=== PATIENT | female | born 1955 | race Caucasian/White ===

== ENCOUNTER 2017-01-28 05:07 | Emergency (ER) | payer BC ==
[~2017-01-28] VITALS: Ht 170.2 cm; Wt 68.0 kg
[~2017-01-28 05:07] MED LIST: ACHD5005 PO; CPR500T PO; CRAN200C PO; ESOM20CA32 PO; HYOS0.1283 SL; LACT1CAP8 PO; LEVO50TA6 PO; METR500T PO; MULT1TAB59 PO; NITR-65 PO; NYST1000 PO; ONDA4TAB8 PO; PANT20TA PO; PANT40TA2 PO; SCP1.5TD TOP; SUCR1ORA5 PO
--- OUTSIDE RECORDS SUMMARY | 2017-01-28 05:13 | XMS REPORT | Continuity of Care Document ---
Author Author [facility] Organization [facility] Address Unknown Phone Unavailable Care Team Providers Care [place] Nurse Name Role Phone ARELI DODGE MD PCP Insurance Providers Payer Name Policy Number Subscriber Name Relationship [facility] [id number] Aarti Miranda 18 Self / Same As Patient Advance Directives Directive Response Recorded Date/Time Advance Directives No 05/21/16 9:40am Health Care Power of Prepared Foods Supervisor No 05/21/16 9:40am Organ Donor No 05/21/16 9:40am Resuscitation Status Full Code 05/21/16 9:40am Problems No problem information available. Medications Current Home Medications Medication Dose Units Route Directions Days/Qty Instructions Start Date Lactobacillus Acidophilus 1 Each 1 Each Oral Daily 05/15/16 Levothyroxine Sodium 50 Mcg 50 Mcg Oral Daily 05/15/16 Pantoprazole Sodium 40 Mg 40 Mg Oral Daily 30 05/21/16 Past Home Medications Medication Directions Ordered Status Pantoprazole Sodium 20 Mg Tablet.dr, 20 Mg Oral Daily 10/17/10 Discontinued Cranberry Extract 200 Mg Capsule, 200 Mg Oral Daily 10/17/10 Discontinued Multivitamins W-Minerals/Lut 1 Each Tablet, 1 Each Oral Daily 10/17/10 Discontinued Acetaminophen/Hydrocodone Bitart 1 Each Tablet, 1 Each Oral Q 4 Hrs Prn 10/21 Discontinued Ciprofloxacin 500 Mg Tablet, 1 Tab Oral Twice A Day 10/24/10 Discontinued Metronidazole 500 Mg Tab, 1 Each Oral Three Times A Day 10/24/10 Discontinued Nystatin (Mycostatin Oral Suspension) 60 Ml Btl, 5 Ml Oral Four Times Daily 10/24/10 Discontinued Scopolamine 1.5 Mg Patch, 1 Ea Topically Every 72 Hours 10/24/10 Discontinued Esomeprazole Magnesium 22.3 Mg Capsule.dr, 22.3 Mg Oral Daily 05/15/16 Discontinued Social History Social History Problem Response Recorded Date/Time Recent Foreign Travel No 05/21/2016 9:40am Smoking Status Never a Smoker 05/21/2016 9:40am Query Response Start Date Stop Date Smoking Status Never a Smoker Hospital Discharge Instructions Patient Instructions Physician Instructions New, Converted or Re-Newed RX: Transmitted to Pharmacy Plan of Care/Instructions/FU: 3 weeks [place] Activity as Tolerated: Yes Discharge Diet: Regular Diet Care Plan Patient Instructions:: 3 weeks [place] Plan of Care Discharge Date 05/21/16 3:00pm Instructions/Education Provided COLONOSCOPY EGD-ESOPHAGOGASTRODUODENOSCOPY Prescriptions See Medication Section Functional Status No functional status results. Allergies, Adverse Reactions, Alerts Allergen Type Severity Reaction Status Last Updated Sulfa (Sulfonamide Antibiotics) ([id number]) Allergy Unknown Active 18/09 Immunizations No immunization records. Vital Signs Acute Vital Signs Vital Response Date/Time Temperature (Fahrenheit) 98.0 degrees F (97.6 - 99.5) 05/21/2016 3:00pm Temperature (Calculated Celsius) 36.18113 degrees C (36.4 - 37.5) 05/21/2016 3:00pm Temperature Source Tympanic 05/21/2016 3:00pm Pulse Rate (adult) 68 bpm (60 - 90) 05/21/2016 3:00pm Respiratory Rate 18 bpm (12 - 24) 05/21/2016 3:00pm O2 Sat by Pulse Oximetry 98 % (88 - 100) 05/21/2016 3:00pm Blood Pressure 120/64 mm Hg 05/21/2016 3:00pm Blood Pressure 120/64 mm Hg 05/21/2016 3:00pm Pain Pain Intensity 0 05/21/2016 3:00pm Pain Pain Intensity 0 05/21/2016 3:00pm Height (Feet) 5 feet 05/21/2016 9:40am Height (Inches) 7.00 inches 05/21/2016 9:40am Height (Calculated Centimeters) 170.214053 cm 05/21/2016 9:40am Weight (Pounds) 150 pounds 05/21/2016 9:40am Weight (Ounces) 10.6 oz 05/21/2016 9:40am Weight (Calculated Grams) 34820.361 gm 05/21/2016 9:40am Weight (Calculated Kilograms) 68.645976 kilograms 05/21/2016 9:40am Calculated BMI 23.6 05/21/2016 9:40am Results Laboratory Results Test Name Result Units Flags Reference Collection Date/Time Result Date/ Time Comments White Blood Count 6.2 10^3/uL 4.3-11.0 04/26/2016 8:04/26/2016 8: 41am Red Blood Count 4.21 10^6/uL L 4.35-5.85 04/26/2016 8:04/26/2016 8: 41am Hemoglobin 13.3 G/DL 11.5-16.0 04/26/2016 8:04/26/2016 8:41am Hematocrit 40 % 35-52 04/26/2016 8:04/26/2016 8:41am Mean Corpuscular Volume 95 FL 80-99 04/26/2016 8:04/26/2016 8: 41am Mean Corpuscular Hemoglobin 32 PG 25-34 04/26/2016 8:04/26/2016 8: 41am Mean Corpuscular Hemoglobin Concent 33 G/DL 32-36 04/26/2016 8: 8:41am Red Cell Distribution Width 11.8 % 10.0-14.5 04/26/2016 8:2015 8:41am Platelet Count 268 10^3/uL 130-400 04/26/2016 8:04/26/2016 8:41am Mean Platelet Volume 8.7 FL 7.4-10.4 04/26/2016 8:04/26/2016 8: 41am Sodium Level 141 MMOL/L 135-145 04/26/2016 8:04/26/2016 8:58am Potassium Level 3.7 MMOL/L 3.6-5.0 04/26/2016 8:04/26/2016 8:58am Chloride Level 107 MMOL/L 98-107 04/26/2016 8:am 04/26/2016 8:58am Carbon Dioxide Level 28 MMOL/L 21-32 04/26/2016 8:04/26/2016 8: 58am Anion Gap 6 MMOL/L 5-14 04/26/2016 8:am 04/26/2016 8:58am Blood Urea Nitrogen 17 MG/DL 7-18 04/26/2016 8:04/26/2016 8:58am Creatinine 0.78 MG/DL 0.60-1.30 04/26/2016 8:04/26/2016 8:58am BUN/Creatinine Ratio 22 04/26/2016 8:04/26/2016 8:58am Estimat Glomerular Filtration Rate > 60 04/26/2016 8:2015 8:58am GFR INTERPRETIVE DATA UNITS FOR ESTIMATED GFR (eGFR): mL/min/1.73 M2 REFERENCE RANGE FOR ESTIMATED GFR (eGFR) eGFR NORMAL eGFR >60 MODERATELY DECREASED eGFR 30-59 SEVERLY DECREASED eGFR 15-29 KIDNEY FAILURE <15 (OR DIALYSIS) Glucose Level 92 MG/DL 70-105 04/26/2016 8:04/26/2016 8:58am Calcium Level 9.0 MG/DL 8.5-10.1 04/26/2016 8:04/26/2016 8:58am Total Bilirubin 0.5 MG/DL 0.1-1.0 04/26/2016 8:04/26/2016 8:58am Alkaline Phosphatase 129 U/L 40-136 04/26/2016 8:04/26/2016 8: 58am Aspartate Amino Transf (AST/SGOT) 18 U/L 5-34 04/26/2016 8:2015 8:58am Alanine Aminotransferase (ALT/SGPT) < 6 U/L 0-55 04/26/2016 8: 8:58am Total Protein 6.9 G/DL 6.4-8.2 04/26/2016 8:04/26/2016 8:58am Albumin 4.1 G/DL 3.2-4.5 04/26/2016 8:04/26/2016 8:58am Thyroid Stimulating Hormone (TSH) 2.28 UIU/ML 0.35-4.94 04/26/2016 8: 29am 04/26/2016 9:23am Pending Laboratory Results Test Name Collection Date/Time Procedures Procedure Status Date Provider(s) Diagnostic colonoscopy Completed 05/21/16 VINICIO HATFIELD DO Esophagogastroduodenoscopy (EGD) with dilation Completed 05/21/16 VINICIO HATFIELD DO Anesthesia for 30 minutes Active 05/21/16 VINICIO HATFIELD DO Encounters Encounter Location Arrival/Admit Date Discharge/Depart Date Attending Provider Departed [facility] 05/21/16 9:35am 3:00pm VINICIO HATFIELD DO Departed Clinic [facility] 05/15/16 5:39am 05/15/16 12: 51pm VINICIO HATFIELD DO Registered Clinic [facility] 04/26/16 7:59am ARELI DODEG MD
[2017-01-28] MEDS ORDERED: LACTATED RINGERS 1,000 ML IV ONE (05:26)
[2017-01-28] MEDS ORDERED: ONDANSETRON 4 MG/2 ML (SDV) Z0FRAN IVP ONE (05:30)
[2017-01-28] MEDS ORDERED: HYOSCYAMINE 0.125 MG (LEVSIN) TAB SL ONE (05:30)
[2017-01-28 05:47] LABS: KETONES,URINE 1+ (NEGATIVE); LEUKOCYTE ESTERASE ,URINE 3+ (NEGATIVE); NITRITE,URINE NEGATIVE (NEGATIVE); PH,URINE 5 (5-9); PROTEIN,URINE 2+ (NEGATIVE); UROBILINOGEN,URINE 1 MG/DL (NORMAL)
[2017-01-28 05:55] LABS: BASOPHILS % (AUTO) 0 % (0-10); EOSINOPHILS # (AUTO) 0.1 10^3/uL (0.0-0.3); EOSINOPHILS % (AUTO) 1 % (0-10); LYMPHOCYTES # (AUTO) 1.4 X 10^3 (1.0-4.0); LYMPHOCYTES % (AUTO) 18 % (12-44); MEAN CORPUSCULAR HEMOGLOBIN 32 PG (25-34); MEAN CORPUSCULAR HGB CONC 34 G/DL (32-36); MEAN CORPUSCULAR VOLUME 92 FL (80-99); MEAN PLATELET VOLUME 9.1 FL (7.4-10.4); MONOCYTES # (AUTO) 0.6 X 10^3 (0.0-1.0); MONOCYTES % (AUTO) 8 % (0-12); NEUTROPHILS # (AUTO) 5.8 X 10^3 (1.8-7.8); NEUTROPHILS % (AUTO) 74 % (42-75); PLATELET COUNT 237 10^3/uL (130-400); RED BLOOD COUNT 4.37 10^6/uL (4.35-5.85); RED CELL DISTRIBUTION WIDTH 12.4 % (10.0-14.5); WHITE BLOOD COUNT 7.8 10^3/uL (4.3-11.0)
[2017-01-28 06:09] LABS: ALANINE AMINOTRANSFERASE 8 U/L (0-55); AMYLASE 38 U/L (25-125); ANION GAP 12 MMOL/L (5-14); ASPARTATE AMINO TRANSFERASE 22 U/L (5-34); BILIRUBIN,TOTAL 0.6 MG/DL (0.1-1.0); BLOOD UREA NITROGEN 20 MG/DL (7-18); BUN/CREATININE RATIO 25; CALCIUM 9.1 MG/DL (8.5-10.1); CARBON DIOXIDE 20 MMOL/L (21-32); CHLORIDE 106 MMOL/L (98-107); CREATININE SERUM 0.79 MG/DL (0.60-1.30); GFR ESTIMATED > 60; GLUCOSE 114 MG/DL (70-105); LIPASE 6 U/L (8-78); POTASSIUM 3.7 MMOL/L (3.6-5.0); SODIUM 138 MMOL/L (135-145)
[2017-01-28] MEDS ORDERED: NS 100 ML (IVPB) BAG IV ONE (06:45)
[2017-01-28] MEDS ORDERED: IOHEXOL 350 MG/ML 100 ML (OMNIPAQUE 350) VIAL IV ONE (06:45)
--- NOTE | 2017-01-28 06:49 | ED GI ---
General Chief Complaint: Abdominal/GI Problems Stated Complaint: ABD PAIN,NAUSEA,DIARRHEA,POSS FEVER Nursing Triage Note: upper abdominal pain since friday Sepsis Screen: No Definite Risk Source of Information: Patient (MORENA BETANCOURT DO) History of Present Illness Time Seen By Provider: 05:25 Initial Comments PT C/O NAUSEA AND DIARRHEA SINCE Friday01/16/17 PT STATES DIARRHEA WAS BAD FRIDAY AND YESTERDAY AND NOT BAD TODAY--ONLY 3 STOOLS TODAY. NO BLACK/ BLOODY / TARRY STOOLS NO VOMITING---PT STATES SHE HAS HAD BARRY FUNDOPLICATION AND CANNOT THROW UP THINKS SHE MIGHT HAVE HAD A MILD FEVER C/O EPIGASTRIC PAIN PT STATES SHE NEVER DRINKS VERY MUCH AND THEREFORE NEVER URINATES VERY MUCH. DENIES ANY DECREASED IN URINE OUTPUT STATES SHE DID KEEP SOME WATER DOWN AND MILK DOWN ON Friday01/27/17 NO KNOWN SICK CONTACTS OR SUSPICIOUS FOODS PCP: DR. DODGE (SERAFINMORENA DO) Allergies and Home Medications Allergies Coded Allergies: Sulfa (Sulfonamide Antibiotics) (Unverified Allergy, Unknown, 10/19/10) Home Medications Ciprofloxacin HCl 500 Mg Tablet #14 500 MG PO BID Prescribed by: ALVAREZ RAM on 01/28/17 08 Hydrocodone/Acetaminophen 1 Each Tablet #10 1 EACH PO Q6H PRN PRN PAIN Prescribed by: ALVAREZ RAM on 01/28/17805 Hyoscyamine Sulfate 0.125 Mg Tab.subl #15 1-2 TAB SL Q4H Prescribed by: MORENA BETANCOURT on 11/07/1614 Lactobacillus Acidophilus 1 Each Capsule 1 EACH PO DAILY (Reported) Levothyroxine Sodium 50 Mcg Tablet 50 MCG PO DAILY (Reported) Metronidazole 500 Mg Tablet #14 500 MG PO BID Prescribed by: ALVAREZ RAM on 01/28/17805 Nitrofurantoin Monohyd/M-Cryst 100 Mg Capsule #20 100 MG PO BID Prescribed by: MORENA BETANCOURT on 11/07/1614 Ondansetron 4 Mg Tab.rapdis #10 4 MG PO Q4H Prescribed by: MORENA BETANCOURT on 11/07/1614 Ondansetron 4 Mg Tab.rapdis #8 4 MG PO Q6H PRN PRN NAUSEA/VOMITING Prescribed by: ALVAREZ RAM on 01/28/17 0806 Pantoprazole Sodium 40 Mg Tablet.dr #30 40 MG PO DAILY Prescribed by: VINICIO HATFIELD on 05/21/16 1427 Sucralfate 1 Gm/10 Ml Oral.susp #400 1 GM PO QID Prescribed by: MORENA BETANCOURT on 11/07/16 0015 Review of Systems Constitutional: see HPI fever EENTM: No Symptoms Reported Respiratory: No Symptoms Reported Cardiovascular: No Symptoms Reported Gastrointestinal: See HPI Abdominal Pain Diarrhea Nausea Poor Appetite Poor Fluid IntakeDenies Vomiting Genitourinary: No Symptoms Reported Musculoskeletal: no symptoms reported Skin: no symptoms reported Psychiatric/Neurological: No Symptoms Reported Endocrine: No Symptoms Reported Hematologic/Lymphatic: No Symptoms Reported (MORENA BETANCOURT DO) Past Socayew-Dqbqys-Swleld Hx Patient Social History Alcohol Use: Denies Use Recreational Drug Use: No Smoking Status: Never a Smoker 2nd Hand Smoke Exposure: No Recent Foreign Travel: No Contact w/Someone Who Travel: No Recent Infectious Disease Expo: No Recent Hopitalizations: No (MORENA BETANCOURT DO) Immunizations Up To Date Tetanus Booster (TDap): Unknown (HEAVENLY BETANCOURTA Lawrence MEZA) Seasonal Allergies Seasonal Allergies: No (MORENA BETANCOURT DO) Surgeries HX Surgeries: Yes (BARRY FUNDOPLICATION) Surgeries: Abdominal, Appendectomy, Eye Surgery, Hysterectomy, Oophorectomy (HEAVENLY BETANCOURTA K DO) Respiratory Hx Respiratory Disorders: No (HEAVENLY BETANCOURTA K DO) Cardiovascular Hx Cardiac Disorders: Yes (HX MURMUR) Cardiac Disorders: Heart Murmur (HEAVENLY BETANCOURTA Lawrence MEZA) Neurological Hx Neurological Disorders: No (HEAVENLY BETANCOURTA K DO) Reproductive System Hx 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, 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 (HEAVENLY BETANCOURTA K DO) Genitourinary Hx Genitourinary Disorders: Yes Genitourinary Disorders: UTI-Chronic (HEAVENLY BETANCOURTA K DO) Gastrointestinal Hx Gastrointestinal Disorders: Yes (S/P LAP BARRY FUNDOPLICATION) Gastrointestinal Disorders: Gastroesophageal Reflux, Hiatal Hernia (SERAFINMORENA K DO) Musculoskeletal Hx Musculoskeletal Disorders: Yes Musculoskeletal Disorders: Arthritis (SERAFINMORENA K DO) Endocrine Hx Endocrine Disorders: Yes Endocrine Disorders: Hypothyroidsim (HEAVENLY BETANCOURTA K DO) HEENT HX ENT Disorders: No (SERAFIN,MORENA K DO) Cancer Hx Cancer: No (SERAFIN,MORENA K DO) Psychosocial Hx Psychiatric Problems: No (SERAFIN,MORENA K DO) Integumentary HX Skin/Integumentary Disorder: No (SERAFIN,MORENA K DO) Blood Transfusions Hx Blood Disorders: No (CARRIER HEMOPHILIA) (SERAFIN,MORENA K DO) Physical Exam Vital Signs VS - Last 72 Hours, by Label 01/28/17 05:21 Temp 99.7 Pulse 99 Resp 18 B/P 148/107 Pulse Ox 95 O2 Delivery Room Air (ALVAREZ RAM MD) Vital Signs Capillary Refill : Less Than 3 Seconds (SERAFIN,MORENA K DO) General Appearance: WD/WN no apparent distress HEENT: PERRL/EOMI normal ENT inspection Neck: normal inspection Respiratory: normal breath sounds no respiratory distress no accessory muscle use Cardiovascular: regular rate, rhythm no murmur Gastrointestinal: normal bowel sounds soft no organomegaly no pulsatile massNo distended, No guarding, No rebound, tenderness (EPIGASTRIC)No hernia, No mass Back: no CVA tenderness 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 no motor/sensory deficits alert normal mood/affect oriented x 3 Skin: normal color warm/dry (SERAFIN,MORENA K DO) Progress/Results/Core Measures Results/Orders Lab Results Laboratory Tests Test 01/28/17 05:30 Range/Units Alanine Aminotransferase (ALT/SGPT) 8 0-55 U/L Albumin 4.0 3.2-4.5 G/DL Alkaline Phosphatase 116 40-136 U/L Amylase Level 38 25-125 U/L Anion Gap 12 5-14 MMOL/L Aspartate Amino Transf (AST/SGOT) 22 5-34 U/L BUN/Creatinine Ratio 25 Basophils # (Auto) 0.0 0.0-0.1 10^3/uL Basophils (%) (Auto) 0 0-10 % Blood Urea Nitrogen 20 H 7-18 MG/DL Calcium Level 9.1 8.5-10.1 MG/DL Carbon Dioxide Level 20 L 21-32 MMOL/L Chloride Level 106 98-107 MMOL/L Creatinine 0.79 0.60-1.30 MG/DL Eosinophils # (Auto) 0.1 0.0-0.3 10^3/uL Eosinophils (%) (Auto) 1 0-10 % Estimat Glomerular Filtration Rate > 60 Glucose Level 114 H 70-105 MG/DL Hematocrit 40 35-52 % Hemoglobin 13.8 11.5-16.0 G/DL Lipase 6 L 8-78 U/L Lymphocytes # (Auto) 1.4 1.0-4.0 X 10^3 Lymphocytes (%) (Auto) 18 12-44 % Mean Corpuscular Hemoglobin 32 25-34 PG Mean Corpuscular Hemoglobin Concent 34 32-36 G/DL Mean Corpuscular Volume 92 80-99 FL Mean Platelet Volume 9.1 7.4-10.4 FL Monocytes # (Auto) 0.6 0.0-1.0 X 10^3 Monocytes (%) (Auto) 8 0-12 % Neutrophils # (Auto) 5.8 1.8-7.8 X 10^3 Neutrophils (%) (Auto) 74 42-75 % Platelet Count 237 130-400 10^3/uL Potassium Level 3.7 3.6-5.0 MMOL/L Red Blood Count 4.37 4.35-5.85 10^6/uL Red Cell Distribution Width 12.4 10.0-14.5 % Sodium Level 138 135-145 MMOL/L Total Bilirubin 0.6 0.1-1.0 MG/DL Total Protein 7.0 6.4-8.2 G/DL Urine Bacteria MODERATE H /HPF Urine Bilirubin 1+ H NEGATIVE Urine Casts NONE /LPF Urine Clarity SLIGHTLY CLOUDY Urine Color YELLOW Urine Crystals NONE /LPF Urine Culture Indicated YES Urine Glucose (UA) NEGATIVE NEGATIVE Urine Ketones 1+ H NEGATIVE Urine Leukocyte Esterase 3+ H NEGATIVE Urine Mucus LARGE H /LPF Urine Nitrite NEGATIVE NEGATIVE Urine Protein 2+ H NEGATIVE Urine RBC 0-2 /HPF Urine RBC (Auto) 1+ H NEGATIVE Urine Specific Garibaldi 1.025 H 1.016-1.022 Urine Squamous Epithelial Cells 2-5 /HPF Urine Urobilinogen 1 NORMAL MG/DL Urine WBC 10-25 H /HPF Urine pH 5 5-9 White Blood Count 7.8 4.3-11.0 10^3/uL (ALVAREZ RAM MD) My Orders Orders-ALVAREZ RAM MD Iohexol Injection (Omnipaque 350 Mg/Ml 1 (01/28/17 06:45) Ns (Ivpb) (Sodium Chloride 0.9% Ivpb Bag (01/28/17 06:45) Fentanyl Injection (Sublimaze Injection (01/28/17 07:56) Ketorolac Injection (Toradol Injection) (01/28/17 07:56) Metronidazole Tablet (Flagyl Tablet) (01/28/17 07:56) Ciprofloxacin Tablet (Cipro Tablet) (01/28/17 08:00) (ALVAREZ RAM MD) Medications Given in ED Current Medications Medications Dose Ordered Sig/Roland Route Start Time Stop Time Status Last Admin Dose Admin Hyoscyamine Sulfate 0.25 mg 0.25 mg ONCE ONCE SL 01/28/17 05:30 01/28/17 05:31 DC 01/28/17 05:31 0.25 MG Iohexol 100 ml ONCE ONCE IV 01/28/17 06:45 01/28/17 06:51 DC 01/28/17 07:06 100 ML Lactated Ringer's 1,000 ml @ 0 mls/hr Q0M ONCE IV 01/28/17 05:26 01/28/17 05:28 DC 01/28/17 05:31 0 MLS/HR Ondansetron HCl 8 mg ONCE ONCE IVP 01/28/17 05:30 01/28/17 05:31 DC 01/28/17 05:31 8 MG Sodium Chloride 80 ml ONCE ONCE IV 01/28/17 06:45 01/28/17 06:51 DC 01/28/17 07:06 80 ML (ALVAREZ RAM MD) Vital Signs/I&O Vital Sign - Last 12Hours 01/28/17 05:21 Temp 99.7 Pulse 99 Resp 18 B/P 148/107 Pulse Ox 95 O2 Delivery Room Air (ALVAREZ RAM MD) Blood Pressure Mean: 121 Progress Note : Progress Note 0645--CARE TURNED OVER TO DR. RAM, CT / XRAYS PENDING (MORENA BETANCOURT DO) Progress Note : Progress Note 0700: Patient pending CT read and x-ray read. 0735: Labs, CT and x-ray reviewed. 0750: Patient is having some mid abdominal sharp pain. Toradol and fentanyl IV given. Patient has mild thickening of some small bowel loops as well as eventual urinary tract infection. I will treat with Cipro and Flagyl to cover both. This was discussed with patient and family who agree. Also discussed with her the need for follow-up with her primary care doctor for further evaluation related to her monthly diarrhea episodes that may indicate irritable bowel syndrome type symptoms. She will follow-up with her doctor. Discharged home with return precautions. Patient and family verbalize understanding instructions and agreement with plan. (ALVAREZ RAM MD) Diagnostic Imaging Diagonstic Imaging: CT Plain Films/CT/US/NM/MRI: abdomen, pelvis Comments [facility] [place], [place] NAME: TOÑO SARABIAVA [facility] REC#: [id number] PT STATUS: REG ER : 1955 PHYSICIAN: MORENA BETANCOURT DO ADMIT DATE: 01/28/17/ER Draft Date of Exam:01/28/17 CT ABDOMEN/PELVIS W PROCEDURE: CT abdomen and pelvis with contrast. TECHNIQUE: Multiple contiguous axial images were obtained through the abdomen and pelvis after administration of intravenous contrast. INDICATION: Nausea, vomiting, diarrhea, and abdominal pain CONTRAST: 100 cc of Omnipaque 350 was administered. COMPARISON STUDY: CT scan from 11/06/16. FINDINGS: The lung bases are clear. The liver, gallbladder, spleen, pancreas, adrenal glands, and kidneys are again identified. 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 There are some mildly thickened torres of the small bowel loops in the right lower abdomen. The appendix appears normal. No ascites or free air present. IMPRESSION: There is a mildly thickened small bowel loops in the right lower abdomen, possible enteritis. Dictated on workstation # [id number] Dict: 01/28/17 0723 Trans: 01/28/17 0730 NINA [id number] Interpreted by: JAMILAH VASQUEZ MD Electronically signed by: Diagonstic Imaging: Xray Plain Films/CT/US/NM/MRI: abdomen [facility] [place] [place] NAME: PRACHI SARABIA [facility] REC#: [id number] PT STATUS: REG ER : 1955 PHYSICIAN: MORENA BETANCOURT DO ADMIT DATE: 01/28/17/ER Draft Date of Exam:01/28/17 ACUTE ABD SERIES INDICATION: Nausea, vomiting and abdominal pain. Comparison study: None FINDINGS: Upright view of the chest demonstrate the lungs to be clear. The heart, mediastinum and pulmonary vascularity are normal. Supine and upright views of the abdomen demonstrates questionable bowel wall thickening of some small bowel loops in left midabdomen. A CT scan will be performed. The osseous structures appear normal. No abnormal calcifications are seen. IMPRESSION: There is questionable thickening of some small bowel loops. A CT scan will be performed. Dictated on workstation # [id number] Dict: 01/28/1722 Trans: 01/28/17 0725 [facility] [id number] Interpreted by: JAMILAH VASQUEZ MD Electronically signed by: (ALVAREZ RAM MD) Departure Impression Impression: Primary Impression: Epigastric abdominal pain Additional Impression: UTI (urinary tract infection) Qualified Code: N30.00 - Acute cystitis without hematuria Disposition: HOME, SELF-CARE Condition: Stable Departure-Patient Inst. Decision time for Depature: 08:04 (ALVAREZ RAM MD) Referrals: ARELI DODGE MD (PCP/Family) Primary Care Physician Patient Instructions: Acute Abdomen (Belly Pain), Adult (DC), Urinary Tract Infection, Adult (DC) Add. Discharge Instructions: All discharge instructions reviewed with patient and/or family. Voiced understanding. Take medications as directed. Clear liquid diet for 24 hours and then advance as tolerated. Follow-up with your Dr. in one to 2 days for recheck and further evaluation. Return for worse pain, fever, vomiting, weakness, breathing problems or other concerns as needed. Scripts Ondansetron (Ondansetron Odt)4 Mg Tab.rapdis4 Mg PO Q6H PRN NAUSEA/VOMITING #8 TAB Prov:ALVAREZ RAM MD 01/28/17 Metronidazole 500 Mg [id number] Mg PO BID #14 TAB Prov:ALVAREZ RAM MD 01/28/17 Hydrocodone/Acetaminophen (Hydrocodon -Acetaminophen 5-325)1 Each Tablet1 Each PO Q6H PRN PAIN #10 TAB Prov:ALVAREZ RAM MD 01/28/17 Ciprofloxacin HCl 500 Mg [id number] Mg PO BID #14 TAB Prov:ALVAREZ RAM MD 01/28/17 Copy Copies To 1: ARELI DODGE MD, LISA K DO Jan 28, 2017 06:49 ALVAREZ RAM MD Jan 28, 2017 07:47
--- NOTE | 2017-01-28 07:26 | Diagnostic Imaging Report ---
INDICATION: Nausea, vomiting and abdominal pain. Comparison study: None FINDINGS: Upright view of the chest demonstrate the lungs to be clear. The heart, mediastinum and pulmonary vascularity are normal. Supine and upright views of the abdomen demonstrates questionable bowel wall thickening of some small bowel loops in left midabdomen. A CT scan will be performed. The osseous structures appear normal. No abnormal calcifications are seen. IMPRESSION: There is questionable thickening of some small bowel loops. A CT scan will be performed. Dictated by: Dictated on workstation # [id number]
--- NOTE | 2017-01-28 07:31 | Diagnostic Imaging Report ---
PROCEDURE: CT abdomen and pelvis with contrast. TECHNIQUE: Multiple contiguous axial images were obtained through the abdomen and pelvis after administration of intravenous contrast. INDICATION: Nausea, vomiting, diarrhea, and abdominal pain CONTRAST: 100 cc of Omnipaque 350 was administered. COMPARISON STUDY: CT scan from 11/06/16. FINDINGS: The lung bases are clear. The liver, gallbladder, spleen, pancreas, adrenal glands, and kidneys are again identified. 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 There are some mildly thickened torres of the small bowel loops in the right lower abdomen. The appendix appears normal. No ascites or free air present. IMPRESSION: There are mildly thickened small bowel loops in the right lower abdomen, possible enteritis. Dictated by: Dictated on workstation # [id number]
[2017-01-28] MEDS ORDERED: fentaNYL INJECTION 100 MCG/2 ML AMP IVP STA (07:56)
[2017-01-28] MEDS ORDERED: KETOROLAC 30 MG/ML VIAL IVP STA (07:56)
[2017-01-28] MEDS ORDERED: metroNIDAZOLE 500 MG (FLAGYL) TAB PO STA (07:56)
[2017-01-28] MEDS ORDERED: CIPROFLOXACIN 500 MG (CIPRO) TABLET PO SCH (08:00)
[2017-01-28] MEDS ORDERED: ONDA4TAB11 PO (08:06)
[2017-01-28] MEDS ORDERED: CIPR500T4 PO (08:06)
[2017-01-28] MEDS ORDERED: METR500T21 PO (08:06)
[2017-01-28] MEDS ORDERED: HYDR-3812 PO (08:06)
[2017-01-28 08:20] VITALS: BP 135/89
[2017-01-28 09:43] LABS: BILIRUBIN,URINE 1+ (NEGATIVE)
== END 2017-01-28 08:20 | disposition home or self-care (01) ==
LOC: EDUNIT# 05:07 → ER 05:10
DX: R10.13 Epigastric pain (principal); N39.0 Urinary tract infection, site not specified
CPT/HCPCS: 36415; 74022; 74177; 80053; 81000; 82150; 83690; 85025; 87088; 96361; 96374; 96375

== ENCOUNTER → 2017-05-21 | Outpatient (CLI) | payer BC ==
[~2017-05-21] MED LIST changes: +CIPR500T4 PO; +HYDR-3812 PO; +METR500T21 PO; +ONDA4TAB11 PO
== END ==
LOC: LAB 11:23
PROVIDERS: ATTEND Family Medicine
DX: E03.8 Other specified hypothyroidism (principal)
CPT/HCPCS: 36415; 84443

== ENCOUNTER → 2017-10-21 | Outpatient (CLI) | payer BC ==
--- NOTE | 2017-10-22 19:24 | Diagnostic Imaging Report ---
Bilateral screening mammogram 2D views with tomosynthesis. The current study was also evaluated with a Computer Aided Detection (CAD) system. INDICATION: Screening. No current complaints stated on the questionnaire. COMPARISON: 04/27/14. FINDINGS: The breasts are composed of heterogeneously dense parenchyma which may decrease mammographic sensitivity. Allowing for technique and positional differences, no suspicious change is seen. IMPRESSION: No significant change. ACR BI-RADS Category 2: Benign findings. Result letter will be mailed to the patient. Note: At least 10% of breast cancer is not imaged by mammography. Dictated on workstation # [id number]
== END ==
LOC: RAD 14:34
PROVIDERS: ATTEND Obstetrics & Gynecology
DX: Z12.31 Encounter for screening mammogram for malignant neoplasm of breast (principal)
CPT/HCPCS: 77067

== ENCOUNTER 2017-11-21 07:44 | Outpatient (CLI) | payer BC ==
[~2017-11-21] VITALS: Ht 170.2 cm; Wt 76.5 kg
[~2017-11-21 07:44] MED LIST changes: -HYDR-3812 PO
[2017-11-21] MEDS ORDERED: CALC600T12 PO (08:29)
[2017-11-21] MEDS ORDERED: VIT1TABL83 PO (08:29)
[2017-11-21] MEDS ORDERED: NF-ESOM40C PO (08:29)
[2017-11-21 08:33] VITALS: BP 130/74
[2017-11-21 09:03] LABS: BASOPHILS # (AUTO) 0.1 10^3/uL (0.0-0.1); BASOPHILS % (AUTO) 1 % (0-10); EOSINOPHILS # (AUTO) 0.2 10^3/uL (0.0-0.3); EOSINOPHILS % (AUTO) 4 % (0-10); HEMATOCRIT 41 % (35-52); HEMOGLOBIN 13.8 G/DL (11.5-16.0); LYMPHOCYTES # (AUTO) 2.2 X 10^3 (1.0-4.0); LYMPHOCYTES % (AUTO) 33 % (12-44); MEAN CORPUSCULAR HEMOGLOBIN 31 PG (25-34); MEAN CORPUSCULAR HGB CONC 33 G/DL (32-36); MEAN CORPUSCULAR VOLUME 94 FL (80-99); MEAN PLATELET VOLUME 9.3 FL (7.4-10.4); MONOCYTES # (AUTO) 0.5 X 10^3 (0.0-1.0); MONOCYTES % (AUTO) 8 % (0-12); NEUTROPHILS # (AUTO) 3.7 X 10^3 (1.8-7.8); NEUTROPHILS % (AUTO) 55 % (42-75); PLATELET COUNT 283 10^3/uL (130-400); RED BLOOD COUNT 4.39 10^6/uL (4.35-5.85); RED CELL DISTRIBUTION WIDTH 12.2 % (10.0-14.5); WHITE BLOOD COUNT 6.7 10^3/uL (4.3-11.0)
[2017-11-26] MEDS ORDERED: OXYC-465 PO (07:48)
[2017-11-26] MEDS ORDERED: DOCU100C37 PO (07:48)
[2017-11-26] MEDS ORDERED: IBUP-1780 PO (07:48)
== END 2017-11-21 08:45 | disposition home or self-care (01) ==
LOC: PREOP 07:44
PROVIDERS: ATTEND Obstetrics & Gynecology
DX: Z01.812 Encounter for preprocedural laboratory examination (principal); Z11.2 Encounter for screening for other bacterial diseases; N39.3 Stress incontinence (female) (male); N81.10 Cystocele, unspecified; D64.9 Anemia, unspecified; Z88.2 Allergy status to sulfonamides
CPT/HCPCS: 36415; 85025; 87081

== ENCOUNTER 2017-11-25 06:00 | Day surgery (SDC) | payer BC ==
--- NOTE | 2017-11-20 06:14 | HISTORY AND PHYSICAL ---
DATE OF SERVICE: PREOP HISTORY AND PHYSICAL HISTORY OF PRESENT ILLNESS: The patient is a 62-year-old G1, P1 female, who was seen by Dr. Dupont for pressure in the vagina and found to have vaginal prolapse. She leaks urine when she coughs and sneezes and he plans to do a pubovaginal sling. The patient had undergone hysterectomy in the . She complained of feeling like her bladder was falling out. She denies discharge or bleeding. ALLERGIES: SULFA, which causes a rash and itching. MEDICATIONS: Levothyroxine, Nexium, Gaviscon and vitamins. PAST MEDICAL HISTORY: Includes chronic infection after a blood transfusion from a surgery in 2009. PAST SURGICAL HISTORY: Includes that surgery in 2009 which was a Leslie fundoplication, 2003 she had surgery for detached retina on one of her eyes, in 1979 she had a hysterectomy with a bilateral salpingo-oophorectomy having a 3-pound tumor on one of her ovaries that was benign. PAST OB HISTORY: Includes a vaginal delivery in 1971 of a footling breech baby. GYNECOLOGIC HISTORY: Gives menstrual formula 14/regular. Last Pap smear was in 2007 and was normal. FAMILY HISTORY: Noncontributory. 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 She denies drugs, tobacco, alcohol use and has no history of STDs. REVIEW OF SYSTEMS: As per the HPI. PHYSICAL EXAMINATION: HEENT: Normal. NECK: Supple. No lymphadenopathy, no thyromegaly. ABDOMEN: Soft, nontender, nondistended. EXTREMITIES: Show no clubbing or cyanosis. There is no Justa sign. PELVIC: Reveals a greater than first degree cystocele that easily reaches, second to third degree with Valsalva. She has a first degree rectocele with a small enterocele. The vaginal mucosa is somewhat poorly estrogenized. She was started on vaginal estrogen preparation for the planned surgery. Urethra is detached and hypermobile. Rectovaginal exam is confirmatory. ASSESSMENT: Vaginal prolapse with stress urinary incontinence as well as a history of having had a hysterectomy. PLAN: For anterior and posterior vaginal repairs with sacrospinous ligament suspension if needed with Dr. Dupont also performing a pubovaginal sling and cystoscopy. The surgery is scheduled for 11/25/2017. Job ID: [id number] DocumentID: [id number] Dictated Date: 11/17/2017 16:39:34 Securities Dealer Date: 11/17/2017 18:36:08 Dictated By: TASHI HUGHES MD
[~2017-11-25] VITALS: Ht 170.2 cm; Wt 76.5 kg
[2017-11-25] VITALS (13 sets, daily range): BP systolic 108–134; BP diastolic 61–80
[~2017-11-25 06:00] MED LIST changes: +CALC600T12 PO; +NF-ESOM40C PO; +VIT1TABL83 PO
--- OUTSIDE RECORDS SUMMARY | 2017-11-25 06:15 | XMS REPORT | Continuity of Care Document ---
Author Author [facility] Organization [facility] Address Unknown Phone Unavailable Allergies Active Description Code Type Severity Reaction Onset Reported/Identified Relationship to Patient Clinical Status Yes Sulfa (Sulfonamide Antibiotics) [id number] Drug Allergy Unknown N/A 2009 Medications There is no data. Problems Date Dx Coded Attending Type Code Diagnosis Diagnosed By 11/21/2010 Ot 535.40 OTH SPECIFIED GASTRITIS,W/O MENTION OF H 11/21/2010 Ot 787.20 DYSPHAGIA, UNSPECIFIED 11/21/2010 Ot V45.89 POSTSURGICAL STATES NEC 12/04/2010 Ot 535.40 OTH SPECIFIED GASTRITIS,W/O MENTION OF H 12/04/2010 Ot V45.89 POSTSURGICAL STATES NEC 02/20/2011 Ot 112.0 THRUSH 03/03/2011 Ot 112.0 THRUSH 04/26/2016 Ot 530.81 ESOPHAGEAL REFLUX 04/26/2016 Ot 530.81 ESOPHAGEAL REFLUX 04/26/2016 Ot 787.02 NAUSEA ALONE 04/26/2016 Ot 787.03 VOMITING ALONE 04/26/2016 Ot 787.03 VOMITING ALONE 04/26/2016 Ot 787.03 VOMITING ALONE 04/26/2016 Ot V45.89 POSTSURGICAL STATES NEC 04/26/2016 Ot 112.0 THRUSH 04/26/2016 Ot 112.0 THRUSH 04/26/2016 Ot 112.0 THRUSH 04/26/2016 ELLEN OROZCO, TASHI Naidu Ot V76.12 OTH SCREEN MAMMO-MALIGN NEOPLASM OF CLAUDIA 05/10/2016 DAR OROZCO, ARELI R Ot R10.13 EPIGASTRIC PAIN 05/15/2016 VINICIO HATFIELD DO Ot R10.13 EPIGASTRIC PAIN 05/15/2016 VINICIO HATFIELD DO Ot Z01.818 ENCOUNTER FOR OTHER PREPROCEDURAL EXAMIN 05/15/2016 VINICIO HATFIELD DO Ot Z12.11 ENCOUNTER FOR SCREENING FOR MALIGNANT NE 05/16/2016 VINICIO HATFIELD DO Ot R10.13 EPIGASTRIC PAIN 05/16/2016 VINICIO HATFIELD DO Ot Z01.818 ENCOUNTER FOR OTHER PREPROCEDURAL EXAMIN 05/16/2016 VINICIO HATFIELD DO Ot Z12.11 ENCOUNTER FOR SCREENING FOR MALIGNANT NE 05/21/2016 Ot 530.81 ESOPHAGEAL REFLUX 05/21/2016 Ot 787.02 NAUSEA ALONE 05/21/2016 Ot 787.03 VOMITING ALONE 05/21/2016 Ot 787.03 VOMITING ALONE 05/21/2016 Ot 787.03 VOMITING ALONE 05/21/2016 Ot V45.89 POSTSURGICAL STATES NEC 05/21/2016 Ot 112.0 THRUSH 05/21/2016 Ot 112.0 THRUSH 05/21/2016 Ot 112.0 THRUSH 05/21/2016 ELLEN OROZCO, TASHI Naidu Ot V76.12 OTH SCREEN MAMMO-MALIGN NEOPLASM OF CLAUDIA 05/21/2016 DAR OROZCO, ARELI R Ot R10.13 EPIGASTRIC PAIN 05/21/2016 VINICIO HATFIELD DO Ot K29.70 GASTRITIS, UNSPECIFIED, WITHOUT BLEEDING 05/21/2016 HATFIELD VINICIO MEZA Ot Z12.11 ENCOUNTER FOR SCREENING FOR MALIGNANT NE 11/07/2016 Ot 530.81 ESOPHAGEAL REFLUX 11/07/2016 ELLEN OROZCO, TASHI Naidu Ot V76.12 OTH SCREEN MAMMO-MALIGN NEOPLASM OF CLAUDIA 11/07/2016 DAR OROZCO, ARELI R Ot R10.13 EPIGASTRIC PAIN 11/07/2016 SERAFIN DO, MORENA K Ot I77.1 STRICTURE OF ARTERY 11/07/2016 SERAFIN DO, MORENA K Ot N39.0 URINARY TRACT INFECTION, SITE NOT SPECIF 11/07/2016 SERAFIN DO, MORENA K Ot R10.13 EPIGASTRIC PAIN 11/07/2016 SERAFIN DO, MORENA K Ot R11.0 NAUSEA 11/07/2016 SERAFIN DO, MORENA K Ot R51 HEADACHE 11/07/2016 SERAFIN DO, MORENA K Ot I77.1 STRICTURE OF ARTERY 11/07/2016 SERAFIN DO, MORENA K Ot N39.0 URINARY TRACT INFECTION, SITE NOT SPECIF 11/07/2016 SERAFIN DO, MORENA K Ot R10.13 EPIGASTRIC PAIN 11/07/2016 SERAFIN DO, MORENA K Ot R11.0 NAUSEA 11/07/2016 MORENA BETANCOURT DO Ot R51 HEADACHE 11/13/2016 ARELI DODGE MD Ot R94.5 ABNORMAL RESULTS OF LIVER FUNCTION STUDI 11/20/2016 ARELI DODGE MD Ot R94.5 ABNORMAL RESULTS OF LIVER FUNCTION STUDI 01/28/2017 ALVAREZ RAM MD, Ot N39.0 URINARY TRACT INFECTION, SITE NOT SPECIF 01/28/2017 ALVAREZ RAM MD Ot R10.10 UPPER ABDOMINAL PAIN, UNSPECIFIED 01/28/2017 ALVAREZ RAM MD Ot R10.13 EPIGASTRIC PAIN 01/29/2017 ALVAREZ RAM MD, Ot N39.0 URINARY TRACT INFECTION, SITE NOT SPECIF 01/29/2017 ALVAREZ RAM MD, Ot R10.10 UPPER ABDOMINAL PAIN, UNSPECIFIED 01/29/2017 ALVAREZ RAM MD, Ot R10.13 EPIGASTRIC PAIN 05/22/2017 ARELI DODGE MD Ot E03.8 OTHER SPECIFIED HYPOTHYROIDISM 06/04/2017 ARELI DODGE MD Ot E03.8 OTHER SPECIFIED HYPOTHYROIDISM 10/22/2017 TASHI HUGHES MD Ot Z12.31 ENCNTR SCREEN MAMMOGRAM FOR MALIGNANT NE 10/29/2017 TASHI HUGHES MD, Ot Z12.31 ENCNTR SCREEN MAMMOGRAM FOR MALIGNANT NE Procedures Code Description Performed By Performed On 42.92 11/20/2010 45.16 11/20/2010 Results Test Result Range Complete urinalysis with reflex to culture - 11/06/16 22:49 Urine color determination YELLOW NRG Urine clarity determination CLEAR NRG Urine pH measurement by test strip 5 5-9 Specific gravity of urine by test strip 1.025 1.016- 1.022 Urine protein assay by test strip, semi-quantitative 2+ NEGATIVE Urine glucose detection by automated test strip NEGATIVE NEGATIVE Erythrocytes detection in urine sediment by light microscopy 3+ NEGATIVE Urine ketones detection by automated test strip 4+ NEGATIVE Urine nitrite detection by test strip NEGATIVE NEGATIVE Urine total bilirubin detection by test strip NEGATIVE NEGATIVE Urine urobilinogen measurement by automated test strip (mass/volume) 1 mg/dL NORMAL Urine leukocyte esterase detection by dipstick 2+ NEGATIVE Automated urine sediment erythrocyte count by microscopy (number/high power field) [HPF] NRG Automated urine sediment leukocyte count by microscopy (number/high power field ) [HPF] NRG Bacteria detection in urine sediment by light microscopy FEW NRG Crystals detection in urine sediment by light microscopy NONE NRG Casts detection in urine sediment by light microscopy NONE NRG Mucus detection in urine sediment by light microscopy SMALL NRG Complete urinalysis with reflex to culture YES NRG Bacterial urine culture - 11/06/16 22:49 Bacterial urine culture NG NRG Complete blood count (CBC) with automated white blood cell (WBC) differential - 11/06/16 22:53 Blood leukocytes automated count (number/volume) 13.6 10*3/uL 4.3-11.0 Blood erythrocytes automated count (number/volume) 4.27 10*6/uL 4.35-5.85 Venous blood hemoglobin measurement (mass/volume) 13.2 g/dL 11.5-16.0 Blood hematocrit (volume fraction) 39 % 35-52 Automated erythrocyte mean corpuscular volume 92 [foz_us] 80-99 Automated erythrocyte mean corpuscular hemoglobin (mass per erythrocyte) 31 pg 25-34 Automated erythrocyte mean corpuscular hemoglobin concentration measurement ( mass/volume) 34 g/dL 32-36 Automated erythrocyte distribution width ratio 11.9 % 10.0-14.5 Automated blood platelet count (count/volume) 274 10*3/uL 130-400 Automated blood platelet mean volume measurement 8.4 [foz_us] 7.4-10.4 Automated blood neutrophils/100 leukocytes 81 % 42-75 Automated blood lymphocytes/100 leukocytes 9 % 12-44 Blood monocytes/100 leukocytes 9 % 0-12 Automated blood eosinophils/100 leukocytes 0 % 0-10 Automated blood basophils/100 leukocytes 0 % 0-10 Blood neutrophils automated count (number/volume) 11.0 10*3 1.8-7.8 Blood lymphocytes automated count (number/volume) 1.2 10*3 1.0-4.0 Blood monocytes automated count (number/volume) 1.3 10*3 0.0-1.0 Automated eosinophil count 0.0 10*3/uL 0.0-0.3 Automated blood basophil count (count/volume) 0.0 10*3/uL 0.0-0.1 Comprehensive metabolic panel - 11/06/16 22:53 Serum or plasma sodium measurement (moles/volume) 137 mmol/L 135-145 Serum or plasma potassium measurement (moles/volume) 3.9 mmol/L 3.6-5.0 Serum or plasma chloride measurement (moles/volume) 104 mmol/L 98-107 Carbon dioxide 20 mmol/L 21-32 Serum or plasma anion gap determination (moles/volume) 13 mmol/L 5-14 Serum or plasma urea nitrogen measurement (mass/volume) 15 mg/dL 7-18 Serum or plasma creatinine measurement (mass/volume) 0.76 mg/dL 0.60-1.30 Serum or plasma urea nitrogen/creatinine mass ratio 20 NRG Serum or plasma creatinine measurement with calculation of estimated glomerular filtration rate > NRG Serum or plasma glucose measurement (mass/volume) 115 mg/dL 70-105 Serum or plasma calcium measurement (mass/volume) 9.3 mg/dL 8.5-10.1 Serum or plasma total bilirubin measurement (mass/volume) 0.7 mg/dL 0.1-1.0 Serum or plasma alkaline phosphatase measurement (enzymatic activity/volume) 158 U/L 40-136 Serum or plasma aspartate aminotransferase measurement (enzymatic activity/ volume) 19 U/L 5-34 Serum or plasma alanine aminotransferase measurement (enzymatic activity/volume ) 7 U/L 0-55 Serum or plasma protein measurement (mass/volume) 7.3 g/dL 6.4-8.2 Serum or plasma albumin measurement (mass/volume) 4.0 g/dL 3.2-4.5 Serum or plasma amylase measurement (enzymatic activity/volume) - 11/06/16 22: 53 Serum or plasma amylase measurement (enzymatic activity/volume) 60 U /L 25-125 Lipase - 11/06/16 22:53 Lipase 14 U/L 8-78 THYROID STIMULATING HORMONE - 11/12/16 09:59 THYROID STIMULATING HORMONE 0.76 u[iU]/mL 0.35-4.94 Complete blood count (CBC) with automated white blood cell (WBC) differential - 01/28/17 05:30 Blood leukocytes automated count (number/volume) 7.8 10*3/uL 4.3-11.0 Blood erythrocytes automated count (number/volume) 4.37 10*6/uL 4.35-5.85 Venous blood hemoglobin measurement (mass/volume) 13.8 g/dL 11.5-16.0 Blood hematocrit (volume fraction) 40 % 35-52 Automated erythrocyte mean corpuscular volume 92 [foz_us] 80-99 Automated erythrocyte mean corpuscular hemoglobin (mass per erythrocyte) 32 pg 25-34 Automated erythrocyte mean corpuscular hemoglobin concentration measurement ( mass/volume) 34 g/dL 32-36 Automated erythrocyte distribution width ratio 12.4 % 10.0-14.5 Automated blood platelet count (count/volume) 237 10*3/uL 130-400 Automated blood platelet mean volume measurement 9.1 [foz_us] 7.4-10.4 Automated blood neutrophils/100 leukocytes 74 % 42-75 Automated blood lymphocytes/100 leukocytes 18 % 12-44 Blood monocytes/100 leukocytes 8 % 0-12 Automated blood eosinophils/100 leukocytes 1 % 0-10 Automated blood basophils/100 leukocytes 0 % 0-10 Blood neutrophils automated count (number/volume) 5.8 10*3 1.8-7.8 Blood lymphocytes automated count (number/volume) 1.4 10*3 1.0-4.0 Blood monocytes automated count (number/volume) 0.6 10*3 0.0-1.0 Automated eosinophil count 0.1 10*3/uL 0.0-0.3 Automated blood basophil count (count/volume) 0.0 10*3/uL 0.0-0.1 Complete urinalysis with reflex to culture - 01/28/17 05:30 Urine color determination YELLOW NRG Urine clarity determination SLIGHTLY CLOUDY NRG Urine pH measurement by test strip 5 5-9 Specific gravity of urine by test strip 1.025 1.016- 1.022 Urine protein assay by test strip, semi-quantitative 2+ NEGATIVE Urine glucose detection by automated test strip NEGATIVE NEGATIVE Erythrocytes detection in urine sediment by light microscopy 1+ NEGATIVE Urine ketones detection by automated test strip 1+ NEGATIVE Urine nitrite detection by test strip NEGATIVE NEGATIVE Urine total bilirubin detection by test strip 1+ NEGATIVE Urine urobilinogen measurement by automated test strip (mass/volume) 1 mg/dL NORMAL Urine leukocyte esterase detection by dipstick 3+ NEGATIVE Automated urine sediment erythrocyte count by microscopy (number/high power field) [HPF] NRG Automated urine sediment leukocyte count by microscopy (number/high power field ) [HPF] NRG Bacteria detection in urine sediment by light microscopy MODERATE NRG Squamous epithelial cells detection in urine sediment by light microscopy 2-5 NRG Crystals detection in urine sediment by light microscopy NONE NRG Casts detection in urine sediment by light microscopy NONE NRG Mucus detection in urine sediment by light microscopy LARGE NRG Complete urinalysis with reflex to culture YES [facility] Comprehensive metabolic panel - 01/28/17 05:30 Serum or plasma sodium measurement (moles/volume) 138 mmol/L 135-145 Serum or plasma potassium measurement (moles/volume) 3.7 mmol/L 3.6-5.0 Serum or plasma chloride measurement (moles/volume) 106 mmol/L 98-107 Carbon dioxide 20 mmol/L 21-32 Serum or plasma anion gap determination (moles/volume) 12 mmol/L 5-14 Serum or plasma urea nitrogen measurement (mass/volume) 20 mg/dL 7-18 Serum or plasma creatinine measurement (mass/volume) 0.79 mg/dL 0.60-1.30 Serum or plasma urea nitrogen/creatinine mass ratio 25 NRG Serum or plasma creatinine measurement with calculation of estimated glomerular filtration rate > NRG Serum or plasma glucose measurement (mass/volume) 114 mg/dL 70-105 Serum or plasma calcium measurement (mass/volume) 9.1 mg/dL 8.5-10.1 Serum or plasma total bilirubin measurement (mass/volume) 0.6 mg/dL 0.1-1.0 Serum or plasma alkaline phosphatase measurement (enzymatic activity/volume) 116 U/L 40-136 Serum or plasma aspartate aminotransferase measurement (enzymatic activity/ volume) 22 U/L 5-34 Serum or plasma alanine aminotransferase measurement (enzymatic activity/volume ) 8 U/L 0-55 Serum or plasma protein measurement (mass/volume) 7.0 g/dL 6.4-8.2 Serum or plasma albumin measurement (mass/volume) 4.0 g/dL 3.2-4.5 Serum or plasma amylase measurement (enzymatic activity/volume) - 01/28/17 05: 30 Serum or plasma amylase measurement (enzymatic activity/volume) 38 U /L 25-125 Lipase - 01/28/17 05:30 Lipase 6 U/L 8-78 Bacterial urine culture - 01/28/17 05:30 URINE CULTURE RESULTS <10,000/ML [facility] THYROID STIMULATING HORMONE - 05/21/17 11:35 THYROID STIMULATING HORMONE 1.27 u[iU]/mL 0.35-4.94 Complete blood count (CBC) with automated white blood cell (WBC) differential - 11/21/17 08:37 Blood leukocytes automated count (number/volume) 6.7 10*3/uL 4.3-11.0 Blood erythrocytes automated count (number/volume) 4.39 10*6/uL 4.35-5.85 Venous blood hemoglobin measurement (mass/volume) 13.8 g/dL 11.5-16.0 Blood hematocrit (volume fraction) 41 % 35-52 Automated erythrocyte mean corpuscular volume 94 [foz_us] 80-99 Automated erythrocyte mean corpuscular hemoglobin (mass per erythrocyte) 31 pg 25-34 Automated erythrocyte mean corpuscular hemoglobin concentration measurement ( mass/volume) 33 g/dL 32-36 Automated erythrocyte distribution width ratio 12.2 % 10.0-14.5 Automated blood platelet count (count/volume) 283 10*3/uL 130-400 Automated blood platelet mean volume measurement 9.3 [foz_us] 7.4-10.4 Automated blood neutrophils/100 leukocytes 55 % 42-75 Automated blood lymphocytes/100 leukocytes 33 % 12-44 Blood monocytes/100 leukocytes 8 % 0-12 Automated blood eosinophils/100 leukocytes 4 % 0-10 Automated blood basophils/100 leukocytes 1 % 0-10 Blood neutrophils automated count (number/volume) 3.7 10*3 1.8-7.8 Blood lymphocytes automated count (number/volume) 2.2 10*3 1.0-4.0 Blood monocytes automated count (number/volume) 0.5 10*3 0.0-1.0 Automated eosinophil count 0.2 10*3/uL 0.0-0.3 Automated blood basophil count (count/volume) 0.1 10*3/uL 0.0-0.1 Methicillin resistant Staphylococcus aureus (MRSA) screening culture - 08:37 Methicillin resistant Staphylococcus aureus (MRSA) screening culture NEG NRG Encounters ACCT No. Visit Date/Time Discharge Status Pt. Type Provider Facility Loc./Unit Complaint [id number] 10/21/2017 14:34:00 10/21/2017 23:59:59 CLS Outpatient TASHI HUGHES MD [facility] RAD ROUTINE [id number] 05/21/2017 11:23:00 05/21/2017 23:59:59 CLS Outpatient ARELI DODGE MD [facility] LAB E03.8 244.8 [id number] 01/28/2017 05:10:00 01/28/2017 08:20:00 DIS Emergency ALVAREZ RAM MD [facility] ER ABD PAIN,NAUSEA, DIARRHEA,POSS FEVER [id number] 11/12/2016 09:47:00 11/12/2016 23:59:59 CLS Outpatient ARELI DODGE MD [facility] LAB COLD [id number] 11/06/2016 22:35:00 11/07/2016 00:31:00 DIS Emergency SERAFIN DO MORENA Bravo [facility] ER NAUSEA,HEADACHE [id number] 05/21/2016 09:35:00 05/21/2016 15:00:00 DIS Outpatient VINICIO HATFIELD DO [facility] SCREENING,UPPER GASTRIC PAIN [id number] 05/15/2016 05:39:00 05/15/2016 12:51:00 DIS Outpatient VINICIO HATFIELD DO [facility] PREOP BLOOD IN STOOL [id number] 04/26/2016 07:59:00 04/26/2016 23:59:59 CLS Outpatient ARELI DODGE MD [facility] RAD EPIGASTRIC PAIN [id number] 04/27/2014 10:24:00 04/27/2014 23:59:59 CLS Outpatient TASHI HUGHES MD [facility] RAD SCREENING [id number] 11/25/2017 07:00:00 PEN Preadmit TASHI HUGHES MD [facility] SDC VAGINAL PROLAPSE [id number] 11/21/2017 09:05:00 Document Registration [id number] 03/04/2011 00:00:00 Document Registration [id number] 02/21/2011 00:00:00 Document Registration [id number] 12/24/2010 10:54:00 Document Registration [id number] 12/14/2010 13:44:00 Document Registration [id number] 12/14/2010 08:31:00 Document Registration [id number] 12/13/2010 07:46:00 Document Registration [id number] 12/12/2010 07:52:00 Document Registration [id number] 12/06/2010 08:02:00 Document Registration [id number] 12/04/2010 11:04:00 Document Registration [id number] 12/01/2010 09:06:00 Document Registration [id number] 11/19/2010 10:48:00 Document Registration [id number] 11/12/2010 08:36:00 Document Registration [id number] 01/11/2010 10:39:00 Document Registration
[2017-11-25] MEDS ORDERED: proPOfol 200 MG/20 ML (DIPRIVAN) VIAL IV ONE (06:16)
[2017-11-25] MEDS ORDERED: SEVOFLURANE (ULTANE) 15 ML INHAL SOLN ONE ×2 (06:16→07:50)
[2017-11-25] MEDS ORDERED: LIDOCAINE PF 2% 5 ML (XYLOCAINE) VIAL ONE (06:16)
[2017-11-25] MEDS ORDERED: LACTATED RINGERS 1,000 ML IV ONE (06:16)
[2017-11-25] MEDS ORDERED: ONDANSETRON 4 MG/2 ML (SDV) Z0FRAN ONE ×2 (06:16→06:51)
[2017-11-25] MEDS ORDERED: ROCURONIUM 50 MG/5 ML (ZEMURON) VIAL IV ONE ×2 (06:16→07:30)
[2017-11-25] MEDS ORDERED: MIDAZOLAM 2 MG/2 ML (VERSED) VIAL ONE (06:17)
[2017-11-25] MEDS ORDERED: fentaNYL INJECTION 100 MCG/2 ML AMP ONE (06:17)
[2017-11-25] MEDS ORDERED: ESTRADIOL VAGINAL CREAM 42.5 GM (ESTRACE) VG ONE (06:20)
[2017-11-25] MEDS ORDERED: LACTATED RINGERS 1,000 ML IV PRN (06:43)
[2017-11-25] MEDS ORDERED: ceFAZolin INJECTION 1,000 MG in NS (IVPB) 50 ML IV ONE (06:45)
[2017-11-25] MEDS ORDERED: NS (IVPB) 50 ML ONE (06:51)
[2017-11-25] MEDS ORDERED: ceFAZolin 1,000 MG (ANCEF) VIAL ONE (06:51)
[2017-11-25] MEDS ORDERED: FAMOTIDINE 20MG/2ML IV (PEPCID) ONE (06:51)
[2017-11-25] MEDS ORDERED: ONDANSETRON 4 MG/2 ML (SDV) Z0FRAN IVP ONE (06:54)
[2017-11-25] MEDS ORDERED: FAMOTIDINE 20MG/2ML IV (PEPCID) IVP ONE (06:55)
--- NOTE | 2017-11-25 06:59 | Progress Note-Pre Operative ---
Pre-Operative Progress Note H&P Reviewed The H&P was reviewed, patient examined and no changes noted. Date Seen by Provider: Nov 25, 2017 Time Seen by Provider: 06:59 Date H&P Reviewed: Nov 25, 2017 Time H&P Reviewed: 06:59 Pre-Operative Diagnosis: vaginal prolapse/stress urinary incontinence TASHI HUGHES MD Nov 25, 2017 6:59 am
[2017-11-25] MEDS ORDERED: MEPERIDINE (DEMEROL) INJ 100 MG/ML IM PRN (07:00)
[2017-11-25] MEDS ORDERED: CATHETER FLUSH 10 ML SYR IV PRN (07:00)
[2017-11-25] MEDS ORDERED: ESTROGENS CONJ IV 25 MG/5 ML (PREMARIN) VIAL IVP ONE (07:00)
[2017-11-25] MEDS ORDERED: ONDANSETRON 4 MG/2 ML (SDV) Z0FRAN IVP PRN ×2 (07:00→08:30)
[2017-11-25] MEDS ORDERED: BENZOCAINE/MENTHOL (DERMOPLAST) 56 ML CAN TP PRN (07:00)
[2017-11-25] MEDS ORDERED: WATER (STERILE) FOR INJ 10 ML BTL INJ ONE (07:00)
[2017-11-25] MEDS ORDERED: PROMETHAZINE INJ 25 MG/ML (PHENERGAN) AMP IM PRN (07:00)
[2017-11-25] MEDS ORDERED: oxyCODONE/APAP 10/325MG (PERCOCET 10) TABLET PO PRN (07:00)
--- NOTE | 2017-11-25 07:00 | Progress Note-Post Operative ---
Post-Operative Progess Note Surgeon (s)/Senior Net Developer (s) Surgeon TASHI HUGHES MD Senior Net Developer: Margo Mancilla Pre-Operative Diagnosis vaginal prolapse/stress urinary incontinence Post-Operative Diagnosis same Procedure & Operative Findings Date of Procedure 11/25/17 Procedure Performed/Findings anterior posterior colporrhaphy with enterocele repair and with Dr. Botello performing pubovaginal sling and cystoscopy Anesthesia Type GETA Estimated Blood Loss Estimated blood loss (mL): 100cc Specimens/Packing Specimens Removed none Packing: Kerlix to the vagina TASHI HUGHES MD Nov 25, 2017 07:00
[2017-11-25] MEDS ORDERED: PATIENT MAY USE OWN MEDS, ALL MC SCH (07:15)
[2017-11-25] MEDS ORDERED: DEXAMETHASONE 10 MG/ML (DECADRON) 1 ML VIAL ONE (07:19)
--- NOTE | 2017-11-25 07:47 | Progress Note-Pre Operative ---
Pre-Operative Progress Note H&P Reviewed The H&P was reviewed, patient examined and no changes noted. Date Seen by Provider: Nov 25, 2017 Time Seen by Provider: 07:47 Date H&P Reviewed: Nov 25, 2017 Time H&P Reviewed: 07:47 Pre-Operative Diagnosis: INCONTINENCE, OAB, ISD VI TORIBIO MD Nov 25, 2017 7:47 am
--- NOTE | 2017-11-25 07:48 | Progress Note-Post Operative ---
Post-Operative Progess Note Surgeon (s)/Asset Manager (s) Surgeon VI TORIBIO MD Asset Manager: N/A Pre-Operative Diagnosis INCONTINENCE, OAB, ISD Post-Operative Diagnosis SAME Procedure & Operative Findings Date of Procedure 11/25/17 Procedure Performed/Findings PVS AND CYSTO Anesthesia Type GENERAL Estimated Blood Loss Estimated blood loss (mL): N/A Specimens/Packing Specimens Removed N/A Packing: Kerlix to the vagina VI TORIBIO MD Nov 25, 2017 7:48 am
[2017-11-25] MEDS ORDERED: morphine INJ 4 MG/ML 1 ML (VIAL/SYRINGE) ONE (08:20)
[2017-11-25] MEDS: KETOROLAC 30 MG/ML VIAL IVP SCH ×3 (08:26→21:01)
[2017-11-25] MEDS ORDERED: HYDROmorphone (DILAUDID) 2 MG/ML VIAL IVP PRN (08:30)
[2017-11-25] MEDS ORDERED: MEPERIDINE (DEMEROL) INJ 50 MG/ML IVP PRN (08:30)
[2017-11-25] MEDS ORDERED: morphine INJ 10 MG/ML 1ML (SYR OR VIAL) IVP PRN (08:30)
[2017-11-25] MEDS ORDERED: fentaNYL INJECTION 100 MCG/2 ML AMP IVP PRN (08:30)
[2017-11-25] MEDS ORDERED: PROMETHAZINE INJ 25 MG/ML (PHENERGAN) AMP IVP PRN (08:30)
[2017-11-25] MEDS: D5 LR IV SOLUTION 1,000 ML IV SCH ×2 (10:08→18:12)
--- NOTE | 2017-11-25 11:56 | OPERATIVE REPORT ---
DATE OF SERVICE: 11/25/2017 PREOPERATIVE DIAGNOSIS: Vaginal prolapse. POSTOPERATIVE DIAGNOSIS: Vaginal prolapse. OPERATIVE PROCEDURE: Anterior and posterior colporrhaphy with enterocele repair as well as Dr. Dupont performing a pubovaginal sling and cystoscopy. OPERATIVE DESCRIPTION: With the patient in the supine position under satisfactory general anesthesia, she was repositioned in dorsal lithotomy position in Tony stirrups and prepped and draped in usual fashion for vaginal surgery. Simmons catheter was placed in the urinary bladder. Anterior repair was affected by placing Bonita clamps on the anterior vaginal wall approximately mid wall. An incision was made in the midline with Metzenbaum scissors, that incision was continued to approximately 1 cm to 1.5 cm from urethral meatus and up to the vaginal apex. The bladder was carefully dissected off the muscularis lateral wall fragment of the vagina back to pubic rami bilaterally, sutures of 2-0 Vicryl were now placed in the endopelvic fascia, elevating the bladder and lengthening the urethra. At this point, Dr. Dupont assumed care of the patient, I remained to assist. Dr. Dupont performed his pubovaginal sling and cystoscopy. Upon completion of his portion of the procedure which he will dictate, I resumed care of the patient. Redundant anterior vaginal wall muscularis mucosa was removed sharply, the vaginal wall was then closed with a running locked suture of 3-0 Vicryl Rapide. Good reapproximation and good support was evident. Simmons catheter to dependent drainage. It was draining clear yellow urine. Posterior repair was now affected by placing Bonita clamps on the perineum and the hymenal ring at 5 and 7 o'clock position and inverted triangle of skin was removed from the perineal body in an upright triangle from the posterior vaginal floor. The rectovaginal space was entered sharply and dissected bluntly to the apex of the vagina where it was explored finding a small enterocele, that enterocele was reduced and then plicated with 2-0 Vicryl pursestring suture. The rectovaginal space was then obliterated with additional sutures of 2-0 Vicryl. The perineal body was restored with 2-0 Vicryl sutures and then redundant posterior vaginal wall muscularis mucosa was removed sharply and the vaginal wall closed with a running locked suture of 3-0 Vicryl Rapide. That closure was continued past the hymenal ring down on the perineal body, then back up subcu to the hymenal ring where the suture was tied. Digital rectal exam confirmed no stricture or stenosis of the rectum and no sutures into or through the rectal mucosa. The vagina was now filled with Estrace vaginal cream and a pack of Kerlix gauze was placed. The patient was uneventfully awakened from her general anesthesia and transferred to the recovery room in stable condition. Sponge and needle counts were correct. Estimated blood loss was around 100 mL. The patient tolerated the procedure well. Job ID: [id number] DocumentID: [id number] Dictated Date: 11/25/2017 07:56:00 Licensed Home Inspector Date: 11/25/2017 11:26:32 Dictated By: TASHI HUGHES MD
--- NOTE | 2017-11-25 12:05 | OPERATIVE REPORT ---
DATE OF SERVICE: 11/25/2017 PREOPERATIVE DIAGNOSES: On my part, urinary incontinence with ISD and overactive bladder. SURGEON: Bam Toribio MD ANESTHESIA: General. COMPLICATIONS: None. OPERATION PERFORMED: Pubovaginal sling and cystoscopy. PROCEDURE: Under satisfactory general anesthesia, and after Dr. Bolivar performed the first part of his surgery that he will dictate, I passed the Solyx device on both sides using the described technique and a sling was sitting nicely under the mid urethra with no twisting, no tension and passage of a curved hemostat easily between it and the underlying tissues. I removed the Simmons catheter and performed cystoscopy to confirm the integrity of the bladder, ureteral orifices and urethra with no foreign body and presence of the sling under the mid urethra. I left the bladder a little bit over half full to perform manual Valsalva maneuver after removing the cystoscope and it was negative. I reinserted the Simmons catheter draining clear fluid. Estimated blood loss on my part negligible. Dr. Bolivar proceeded with the rest of the surgery that he will dictate. Job ID: [id number] DocumentID: [id number] Dictated Date: 11/25/2017 07:51:37 Press Hand Supervisor Date: 11/25/2017 11:09:28 Dictated By: BAM TORIBIO MD
[2017-11-26 00:15] VITALS: BP 103/57
[2017-11-26] MEDS: D5 LR IV SOLUTION 1,000 ML IV SCH (02:09)
[2017-11-26] MEDS: KETOROLAC 30 MG/ML VIAL IVP SCH (04:20)
[2017-11-26 04:32] VITALS: BP 118/67
[2017-11-26] MEDS ORDERED: LEVOTHYROXINE 50 MCG (LEVOTHROID) TAB PO SCH (06:30)
--- NOTE | 2017-11-26 07:47 | Progress Note-Standard ---
Standard Progress Note Progress Notes/Assess & Plan Date Seen by Provider: Nov 26, 2017 Time Seen by Provider: 07:46 Progress/Assessment & Plan this patient is without complaint. She is ambulating, tolerating oral intake, has good pain control. Her Simmons catheter and packing had been removed this morning she has not voided yet. She denies headache, denies shortness of breath , denies nausea vomiting, denies abdominal pain. Vital Signs Date Time Temp Pulse Resp B/P (MAP) Pulse Ox O2 Delivery O2 Flow Rate FiO2 11/26/17 04:32 99.1 62 14 118/67 (84) 11/26/17 02:14 98.6 11/26/17 00:15 100.0 87 16 103/57 (72) 11/25/17 21:12 99.1 76 18 108/61 (77) 11/25/17 16:40 98.8 82 18 118/67 (84) 97 Room Air 11/25/17 14:45 97 Room Air 11/25/17 14:05 99 Room Air 11/25/17 14:00 98.1 82 18 128/75 (92) 100 Nasal Cannula 1.50 11/25/17 13:30 70 18 126/67 (86) 99 Nasal Cannula 1.50 11/25/17 13:00 54 18 124/71 (88) 99 Nasal Cannula 1.50 11/25/17 12:30 97.4 76 16 119/70 (86) 100 Nasal Cannula 1.50 11/25/17 12:00 76 16 119/70 (86) 100 Nasal Cannula 1.50 11/25/17 11:30 73 18 123/70 (87) 100 Nasal Cannula 1.50 11/25/17 11:25 Nasal Cannula 1.50 11/25/17 11:22 100 Nasal Cannula 2.00 11/25/17 11:00 72 18 127/70 (89) 100 Nasal Cannula 2.00 11/25/17 10:40 Nasal Cannula 2.00 11/25/17 10:00 98.0 73 16 134/75 (94) 99 Room Air 11/25/17 09:30 66 16 123/72 (89) 96 Room Air 11/25/17 09:05 97.7 66 16 120/70 (87) 97 Room Air I & O 11/26/17 07:00 Intake Total 3240 ml Output Total 1510 ml Balance 1730 ml signs are stable. Patient is afebrile. The abdomen is benign. Bowel sounds are present. Extremities show no clubbing or cyanosis. There is no Homans sign. Assessment and plan postoperative day number 1 doing well. Patient will be discharged home when she is voiding adequately. Final Diagnosis vaginal prolapse and stress urinary incontinence TASHI HUGHES MD Nov 26, 2017 7:47 am
[2017-11-26] MEDS ORDERED: DOCU100C37 PO (07:48)
[2017-11-26] MEDS ORDERED: OXYC-465 PO (07:48)
[2017-11-26] MEDS ORDERED: IBUP-1780 PO (07:48)
--- NOTE | 2017-11-26 07:50 | Discharge Instructions ---
Discharge Instructions Discharge Medications New, Converted or Re-Newed RX: RX on Chart Patient Instructions Patient Instructions: as instructed Return to The Hospital For: as instructed Activity & Diet Discharge Diet: No Restrictions Activity as Tolerated: No Orders-Post D/C & Referrals Follow Up Appt: Call to make follow up appt. for patient in 4 weeks. Activity: Rest for 24 hours, than as tolerated. Please call in RX to patient pharmacy. Diet: As tolerated-Clear Liquids only if nauseated. May shower or tub bathe as desired. No driving for 24 hours, no alcoholic beverages for 24 hours, and nothing per vagina (no tampons, douching, or intercourse) for 2 weeks. Patient to return to the clinic as soon as possible for: Temperature greater than 101F, Severe Pain, Foul discharge from incision or vagina, Excessive Bleeding (more than a period). TASHI HUGHES MD Nov 26, 2017 7:50 am
[2017-11-26 07:57] VITALS: BP 116/66
[2017-11-26] MEDS ORDERED: DOCUSATE SODIUM 100 MG (COLACE) CAP PO SCH (09:00)
[2017-11-26] MEDS ORDERED: IBUPROFEN 800 MG (MOTRIN) TAB PO SCH (12:00)
--- NOTE | 2017-11-26 14:44 | Anesthesia-General Post-Op ---
General Patient Condition Mental Status/LOC: Same as Preop Cardiovascular: Satisfactory Nausea/Vomiting: Absent Respiratory: Satisfactory Pain: Controlled Complications: Absent Post Op Complications Complications None Follow Up Care/Instructions Patient Instructions None needed. Anesthesia/Patient Condition Patient Condition Patient is doing well, no complaints, stable vital signs, no apparent adverse anesthesia problems. She is to be D/C to home today, per pt. ODALIS BANUELOS DO Nov 26, 2017 14:44
[2017-11-27] MEDS ORDERED: NITR100C10 PO (11:15)
[2017-11-27] MEDS ORDERED: ONDA4TAB8 PO (11:24)
== END 2017-11-26 11:45 | disposition home or self-care (01) ==
LOC: SDC 06:00 → WS 09:02 → SDC 11-26 11:45
PROVIDERS: ATTEND Obstetrics & Gynecology
DX: N81.10 Cystocele, unspecified (principal); N81.5 Vaginal enterocele; N39.3 Stress incontinence (female) (male)
CPT/HCPCS: 94664; 99213

== ENCOUNTER 2017-11-26 20:48 | Observation (INO) | payer BC ==
[~2017-11-26] VITALS: Ht 170.2 cm; Wt 76.2 kg
[~2017-11-26 20:48] MED LIST changes: +DOCU100C37 PO; +IBUP-1780 PO; +OXYC-465 PO
--- OUTSIDE RECORDS SUMMARY | 2017-11-26 20:54 | XMS REPORT | Continuity of Care Document ---
Author Author [facility] Organization [facility] Address Unknown Phone Unavailable Allergies Active Description Code Type Severity Reaction Onset Reported/Identified Relationship to Patient Clinical Status Yes Sulfa (Sulfonamide Antibiotics) [id number] Drug Allergy Unknown N/A 2009 Medications There [...] Complete urinalysis with reflex to culture YES [facility] Comprehensive metabolic panel - 01/28/17 05:30 Serum [...] - 01/28/17 05:30 URINE CULTURE RESULTS <10,000/ML [facility] THYROID STIMULATING HORMONE - 05/21/17 11:35 THYROID [...] Status Pt. Type Provider Facility Loc./Unit Complaint [id number] 10/21/2017 14:34:00 10/21/2017 23:59:59 CLS Outpatient TASHI HUGHES MD [facility] RAD ROUTINE [id number] 05/21/2017 11:23:00 05/21/2017 23:59:59 CLS Outpatient ARELI DODGE MD [facility] LAB E03.8 244.8 [id number] 01/28/2017 05:10:00 01/28/2017 08:20:00 DIS Emergency ALVAREZ RAM MD [facility] ER ABD PAIN,NAUSEA, DIARRHEA,POSS FEVER [id number] 11/12/2016 09:47:00 11/12/2016 23:59:59 CLS Outpatient ARELI DODGE MD [facility] LAB COLD [id number] 11/06/2016 22:35:00 11/07/2016 00:31:00 DIS Emergency SERAFIN DO MORENA Bravo [facility] ER NAUSEA,HEADACHE [id number] 05/21/2016 09:35:00 05/21/2016 15:00:00 DIS Outpatient VINICIO HATFIELD DO [facility] SCREENING,UPPER GASTRIC PAIN [id number] 05/15/2016 05:39:00 05/15/2016 12:51:00 DIS Outpatient VINICIO HATFIELD DO [facility] PREOP BLOOD IN STOOL [id number] 04/26/2016 07:59:00 04/26/2016 23:59:59 CLS Outpatient ARELI DODGE MD [facility] RAD EPIGASTRIC PAIN [id number] 04/27/2014 10:24:00 04/27/2014 23:59:59 CLS Outpatient TASHI HUGHES MD [facility] RAD SCREENING [id number] 11/25/2017 07:00:00 PEN Preadmit TASHI HUGHES MD [facility] SDC VAGINAL PROLAPSE [id number] 11/21/2017 09:05:00 Document Registration [id number] 03/04/2011 00:00:00 Document Registration [id number] 02/21/2011 00:00:00 Document Registration [id number] 12/24/2010 10:54:00 Document Registration [id number] 12/14/2010 13:44:00 Document Registration [id number] 12/14/2010 08:31:00 Document Registration [id number] 12/13/2010 07:46:00 Document Registration [id number] 12/12/2010 07:52:00 Document Registration [id number] 12/06/2010 08:02:00 Document Registration [id number] 12/04/2010 11:04:00 Document Registration [id number] 12/01/2010 09:06:00 Document Registration [id number] 11/19/2010 10:48:00 Document Registration [id number] 11/12/2010 08:36:00 Document Registration [id number] 01/11/2010 10:39:00 Document Registration
[2017-11-26] MEDS ORDERED: ONDANSETRON 4 MG/2 ML (SDV) Z0FRAN IVP ONE (22:15)
[2017-11-26] MEDS ORDERED: ONDANSETRON 4 MG (ZOFRAN) ORAL DISSOLVE TAB PO ONE (22:15)
[2017-11-26 22:26] LABS: HEMATOCRIT 35 % (35-52); HEMOGLOBIN 11.5 G/DL (11.5-16.0); MEAN CORPUSCULAR HEMOGLOBIN 31 PG (25-34); MEAN CORPUSCULAR HGB CONC 33 G/DL (32-36); MEAN CORPUSCULAR VOLUME 93 FL (80-99); PLATELET COUNT 231 10^3/uL (130-400); RED BLOOD COUNT 3.73 10^6/uL (4.35-5.85); RED CELL DISTRIBUTION WIDTH 12.1 % (10.0-14.5)
[2017-11-26 22:27] LABS: BASOPHILS % (AUTO) 0 % (0-10); EOSINOPHILS # (AUTO) 0.2 10^3/uL (0.0-0.3); EOSINOPHILS % (AUTO) 1 % (0-10); LYMPHOCYTES % (AUTO) 12 % (12-44); MONOCYTES # (AUTO) 1.3 X 10^3 (0.0-1.0); MONOCYTES % (AUTO) 8 % (0-12); NEUTROPHILS # (AUTO) 12.5 X 10^3 (1.8-7.8); NEUTROPHILS % (AUTO) 78 % (42-75)
--- NOTE | 2017-11-26 22:28 | ED GI ---
General Chief Complaint: Abdominal/GI Problems Stated Complaint: NAUSEA,POST OP Nursing Triage Note: PT PRESENTS TO ER WITH COMPLAINT OF NAUSEA. STATES THAT SHE HAD A BLADDER SLING PUT IN 11/25/17 AND WAS DISCHARGED TODAY AT NOON. STATES THAT SHE WAS INSTRUCTED TO COME TO THE ER BECAUSE IT IS NOT GOOD TO THROW UP WITH THE SURGERY SHE HAD. STATES THAT SHE CANNOT TRULY THROW UP DUE TO HER STOMACH BEING SEWED TO HER ESOPHAGUS. Sepsis Screen: No Definite Risk Source of Information: Patient Exam Limitations: No Limitations (WIL ALCARAZ APRN) History of Present Illness Time Seen By Provider: 22:26 Initial Comments To ER accompanied by her with reports of nausea that began earlier this evening. Patient was released from the hospital today at noon after having a bladder sling procedure done yesterday. Patient was told not to vomit as this could disrupt stitches that were placed during the surgery. She has no abdominal pain only nausea. She has had a Leslie fundoplication and so she is unable to actually vomit but she is straining. Timing/Duration: 1-2 Days Severity/Quality: Moderate Radiation: No Radiation Activities at Onset: None (WIL ALCARAZ APRN) Allergies and Home Medications Allergies Coded Allergies: Sulfa (Sulfonamide Antibiotics) (Unverified Allergy, Unknown, 10/19/10) Home Medications Calcium Carbonate 600 Mg Tablet, 600 MG PO DAILY, (Reported) Docusate Sodium 100 Mg Capsule, 100 MG PO BID, #60 Prescribed by: TASHI TRAN on 11/26/17 0748 Esomeprazole Magnesium 40 Mg Cap, 40 MG PO DAILY, (Reported) Ibuprofen 800 Mg Tablet, 800 MG PO Q6HR, #60 Prescribed by: TASHI TRAN on 11/26/17 0748 Levothyroxine Sodium 50 Mcg Tablet, 100 MCG PO DAILY, (Reported) take 2 (50mcg) tabs Oxycodone HCl/Acetaminophen 1 Each Tablet, 1-2 TAB PO Q4HR PRN for PAIN- MODERATE TO SEVERE, #60 Prescribed by: TASHI TRAN on 11/26/17 0748 Vit A,C & E/Lutein/Minerals 1 Each Tablet, 1 EACH PO DAILY, (Reported) Review of Systems Constitutional: see HPI EENTM: No Symptoms Reported Respiratory: No Symptoms Reported Cardiovascular: No Symptoms Reported Gastrointestinal: See HPI, Abdominal Pain, Nausea Genitourinary: No Symptoms Reported Musculoskeletal: no symptoms reported Skin: no symptoms reported Psychiatric/Neurological: No Symptoms Reported Endocrine: No Symptoms Reported (WIL ALCARAZ APRN) Past Ufhdpjh-Auueal-Stqltb Hx Patient Social History 2nd Hand Smoke Exposure: No Recent Foreign Travel: No Contact w/Someone Who Travel: No Recent Infectious Disease Expo: No Recent Hopitalizations: No (WIL ALCARAZ APRN) Immunizations Up To Date Tetanus Booster (TDap): Unknown Date of Influenza Vaccine: Sep 01, 2017 (WIL ALCARAZ APRN) Seasonal Allergies Seasonal Allergies: No (WIL ALCARAZ APRN) Surgeries Surgeries: Abdominal, Appendectomy, Eye Surgery, Hysterectomy, Oophorectomy, Tubal Ligation (WIL ALCARAZ APRN) Cardiovascular Cardiac Disorders: Heart Murmur (WIL ALCARAZ APRN) Reproductive System 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 (WIL ALCARAZ APRN) Genitourinary Genitourinary Disorders: UTI-Chronic (WIL ALCARAZ APRN) Gastrointestinal Gastrointestinal Disorders: Gastroesophageal Reflux, Hiatal Hernia (WIL ALCARAZ APRN) Musculoskeletal Musculoskeletal Disorders: Arthritis (WIL ALCARAZ APRN) Endocrine Endocrine Disorders: Hypothyroidsim (WIL ALCARAZ APRN) Physical Exam Vital Signs VS - Last 72 Hours, by Label 11/26/17 22:06 Temp 98.3 Pulse 83 Resp 20 B/P (MAP) 135/71 (92) Pulse Ox 98 O2 Delivery Room Air (ALVAREZ RAM MD) Vital Signs Capillary Refill : Less Than 3 Seconds (WIL ALCARAZ APRN) General Appearance: WD/WN, no apparent distress, other (dry heaving on arrival. 8 mg of IV Zofran given.) HEENT: PERRL/EOMI, normal ENT inspection Neck: non-tender, full range of motion Respiratory: normal breath sounds, no respiratory distress, no accessory muscle use Cardiovascular: regular rate, rhythm, no murmur Gastrointestinal: normal bowel sounds, soft, No tenderness Extremities: normal range of motion, non-tender Neurologic/Psychiatric: alert, normal mood/affect, oriented x 3 Skin: normal color, warm/dry (WIL ALCARAZ APRN) Progress/Results/Core Measures Results/Orders Lab Results Laboratory Tests Test 12/27/17 22:16 11/26/17 22:52 Range/Units White Blood Count 16.0 H 4.3-11.0 10^3/uL Red Blood Count 3.73 L 4.35-5.85 10^6/uL Hemoglobin 11.5 11.5-16.0 G/DL Hematocrit 35 35-52 % Mean Corpuscular Volume 93 80-99 FL Mean Corpuscular Hemoglobin 31 25-34 PG Mean Corpuscular Hemoglobin Concent 33 32-36 G/DL Red Cell Distribution Width 12.1 10.0-14.5 % Platelet Count 231 130-400 10^3/uL Mean Platelet Volume 9.0 7.4-10.4 FL Neutrophils (%) (Auto) 78 H 42-75 % Lymphocytes (%) (Auto) 12 12-44 % Monocytes (%) (Auto) 8 0-12 % Eosinophils (%) (Auto) 1 0-10 % Basophils (%) (Auto) 0 0-10 % Neutrophils # (Auto) 12.5 H 1.8-7.8 X 10^3 Lymphocytes # (Auto) 2.0 1.0-4.0 X 10^3 Monocytes # (Auto) 1.3 H 0.0-1.0 X 10^3 Eosinophils # (Auto) 0.2 0.0-0.3 10^3/uL Basophils # (Auto) 0.0 0.0-0.1 10^3/uL Neutrophils % (Manual) 73 % Lymphocytes % (Manual) 19 % Monocytes % (Manual) 5 % Eosinophils % (Manual) 1 % Basophils % (Manual) 0 % Band Neutrophils 2 % Blood Morphology Comment NORMAL Sodium Level 142 135-145 MMOL/L Potassium Level 3.6 3.6-5.0 MMOL/L Chloride Level 109 H 98-107 MMOL/L Carbon Dioxide Level 21 21-32 MMOL/L Anion Gap 12 5-14 MMOL/L Blood Urea Nitrogen 18 7-18 MG/DL Creatinine 1.46 H 0.60-1.30 MG/DL Estimat Glomerular Filtration Rate 36 BUN/Creatinine Ratio 12 Glucose Level 122 H 70-105 MG/DL Calcium Level 8.5 8.5-10.1 MG/DL Total Bilirubin 0.7 0.1-1.0 MG/DL Aspartate Amino Transf (AST/SGOT) 17 5-34 U/L Alanine Aminotransferase (ALT/SGPT) 6 0-55 U/L Alkaline Phosphatase 122 40-136 U/L Total Protein 5.9 L 6.4-8.2 GM/DL Albumin 3.4 3.2-4.5 GM/DL Urine Color YELLOW Urine Clarity SLIGHTLY CLOUDY Urine pH 6 5-9 Urine Specific [place] 1.015 L 1.016-1.022 Urine Protein 2+ H NEGATIVE Urine Glucose (UA) NEGATIVE NEGATIVE Urine Ketones NEGATIVE NEGATIVE Urine Nitrite NEGATIVE NEGATIVE Urine Bilirubin NEGATIVE NEGATIVE Urine Urobilinogen NORMAL NORMAL MG/DL Urine Leukocyte Esterase 3+ H NEGATIVE Urine RBC (Auto) 5+ H NEGATIVE Urine RBC >100 H /HPF Urine WBC >100 H /HPF Urine Squamous Epithelial Cells 0-2 /HPF Urine Crystals NONE /LPF Urine Bacteria FEW H /HPF Urine Casts NONE /LPF Urine Mucus NEGATIVE /LPF Urine Culture Indicated YES (ALVAREZ RAM MD) My Orders Orders - ALVAREZ RAM MD Ceftriaxone Injection (Rocephin Injectio (11/26/17 23:30) Dexamethasone Pf Injection (Decadron Pf (11/27/17 00:05) (ALVAREZ RAM MD) Medications Given in ED Current Medications Medications Dose Ordered Sig/Roland Route Start Time Stop Time Status Last Admin Dose Admin Ceftriaxone Sodium 1000 mg/ Sodium Chloride 50 ml @ 100 mls/hr ONCE ONCE IV 11/26/17 23:30 11/26/17 23:59 DC 11/26/17 23:38 100 MLS/HR Ondansetron HCl 8 mg ONCE ONCE IVP 11/26/17 22:15 11/26/17 22:16 DC 11/26/17 22:22 8 MG Promethazine HCl 25 mg ONCE ONCE IVP 11/26/17 23:15 11/26/17 23:16 DC 11/26/17 23:15 25 MG (ALVAREZ RAM MD) Vital Signs/I&O Vital Sign - Last 12Hours 11/26/17 22:06 Temp 98.3 Pulse 83 Resp 20 B/P (MAP) 135/71 (92) Pulse Ox 98 O2 Delivery Room Air (ALVAREZ RAM MD) Blood Pressure Mean: 92 Progress Note : Progress Note I assumed care of the patient. LUNA Alcaraz pending CT abdomen and pelvis results. Patient has had fairly significant nausea and this has improved after Zofran and Phenergan. She is also complaining of some abdominal pain centrally. 0000: CT report noted. I did discuss the case with Dr. Bolivar. Due to the hydroureter nephrosis, we will admit patient overnight and recheck creatinine in the morning. Also will recheck the ureteral swelling via ultrasound. Decadron 10 mg IV times one now to hopefully decrease swelling and allow the ureter to flow. Patient did receive Rocephin 1 g IV for potential urinary tract infection. Patient has no fever and this may be over calling reasonable in the setting of recent surgery. Admit, observation status. Patient and family agree with plan. (ALVAREZ RAM MD) Diagnostic Imaging Diagonstic Imaging: CT Plain Films/CT/US/NM/MRI: abdomen, pelvis Comments Interval development of moderate right hydroureteronephrosis. No evidence of obstructing calculus. There is an area of focal soft tissue prominence in the midline in the visicouterine area and a small amount of free air seen in the right vesicouterine area. This causes mild effacement and mass effect on the central base of the bladder and may cause mass effect on the right visicouterine junction. Correlate with recent surgical changes. (ALVAREZ RAM MD) Departure Communication (Admissions) Time/Spoke to Admitting Phy: 00:00 (ALVAREZ RAM MD) Impression Impression: Primary Impression: Nausea and vomiting Qualified Codes: R11.2 - Nausea with vomiting, unspecified Additional Impression: Hydroureteronephrosis Disposition: ADMITTED INPATIENT Condition: Stable Admissions Decision to Admit Reason: Admit from ER (General) Decision to Admit/Date: Nov 27, 2017 Time/Decision to Admit Time: 00:00 (ALVAREZ RAM MD) Departure-Patient Inst. Decision time for Depature: 22:28 (WIL ALCARAZ APRN) Referrals: ARELI DODGE MD (PCP/Family) Primary Care Physician WIL ALCARAZ APRN Nov 26, 2017 22:28 ALVAREZ RAM MD Nov 27, 2017 00:11
[2017-11-26 22:44] LABS: ALBUMIN 3.4 GM/DL (3.2-4.5); BILIRUBIN,TOTAL 0.7 MG/DL (0.1-1.0); CALCIUM 8.5 MG/DL (8.5-10.1); CREATININE SERUM 1.46 MG/DL (0.60-1.30); POTASSIUM 3.6 MMOL/L (3.6-5.0); TOTAL PROTEIN 5.9 GM/DL (6.4-8.2)
[2017-11-26] MEDS ORDERED: NS IV 1000 ML 1,000 ML IV SCH (22:45)
[2017-11-26 22:53] LABS: BAND NEUTROPHILS 2 %; BASOPHILS % (MANUAL) 0 %; EOSINOPHILS % (MANUAL) 1 %; LYMPHOCYTES % (MANUAL) 19 %; MONOCYTES % (MANUAL) 5 %; NEUTROPHILS % (MANUAL) 73 %; RBC MORPH NORMAL
[2017-11-26] MEDS ORDERED: PROMETHAZINE INJ 25 MG/ML (PHENERGAN) AMP ONE (23:06)
[2017-11-26] MEDS ORDERED: PROMETHAZINE INJ 25 MG/ML (PHENERGAN) AMP IVP ONE ×2 (23:15)
[2017-11-26 23:18] LABS: BILIRUBIN,URINE NEGATIVE (NEGATIVE); CLARITY,URINE SLIGHTLY CLOUDY; COLOR,URINE YELLOW; GLUCOSE, URINE (UA) NEGATIVE (NEGATIVE); KETONES,URINE NEGATIVE (NEGATIVE); LEUKOCYTE ESTERASE ,URINE 3+ (NEGATIVE); NITRITE,URINE NEGATIVE (NEGATIVE); PH,URINE 6 (5-9); PROTEIN,URINE 2+ (NEGATIVE); RBC,URINE >100 /HPF; UROBILINOGEN,URINE NORMAL (NORMAL); WBC,URINE >100 /HPF
[2017-11-26 23:19] LABS: BACTERIA,URINE FEW /HPF; SQUAMOUS EPITHELIAL CELL,UR 0-2 /HPF
[2017-11-26] MEDS ORDERED: cefTRIAXone INJECTION 1,000 MG in NS (IVPB) 50 ML IV ONE (23:30)
[2017-11-27] MEDS ORDERED: DEXAMETHASONE PF 10 MG/ML (DECADRON) VIAL IV STA (00:05)
[2017-11-27] MEDS ORDERED: DEXAMETHASONE 10 MG/ML (DECADRON) 1 ML VIAL ONE (00:28)
--- OUTSIDE RECORDS SUMMARY | 2017-11-27 00:39 | XMS REPORT | Continuity of Care Document ---
Author Author [facility] Organization [facility] Address Unknown Phone Unavailable Allergies Active Description Code Type Severity Reaction Onset Reported/Identified Relationship to Patient Clinical Status Yes Sulfa (Sulfonamide Antibiotics) [id number] Drug Allergy Unknown N/A 2009 Medications There [...] Complete urinalysis with reflex to culture YES [facility] Comprehensive metabolic panel - 01/28/17 05:30 Serum [...] - 01/28/17 05:30 URINE CULTURE RESULTS <10,000/ML [facility] THYROID STIMULATING HORMONE - 05/21/17 11:35 THYROID [...] Staphylococcus aureus (MRSA) screening culture NEG NRG Complete blood count (CBC) with automated white blood cell (WBC) differential - 11/26/17 22:16 Blood leukocytes automated count (number/volume) 16.0 10*3/uL 4.3-11.0 Blood erythrocytes automated count (number/volume) 3.73 10*6/uL 4.35-5.85 Venous blood hemoglobin measurement (mass/volume) 11.5 g/dL 11.5-16.0 Blood hematocrit (volume fraction) 35 % 35-52 Automated erythrocyte mean corpuscular volume 93 [foz_us] 80-99 Automated erythrocyte mean corpuscular hemoglobin (mass per erythrocyte) 31 pg 25-34 Automated erythrocyte mean corpuscular hemoglobin concentration measurement ( mass/volume) 33 g/dL 32-36 Automated erythrocyte distribution width ratio 12.1 % 10.0-14.5 Automated blood platelet count (count/volume) 231 10*3/uL 130-400 Automated blood platelet mean volume measurement 9.0 [foz_us] 7.4-10.4 Automated blood neutrophils/100 leukocytes 78 % 42-75 Automated blood lymphocytes/100 leukocytes 12 % 12-44 Blood monocytes/100 leukocytes 8 % 0-12 Automated blood eosinophils/100 leukocytes 1 % 0-10 Automated blood basophils/100 leukocytes 0 % 0-10 Blood neutrophils automated count (number/volume) 12.5 10*3 1.8-7.8 Blood lymphocytes automated count (number/volume) 2.0 10*3 1.0-4.0 Blood monocytes automated count (number/volume) 1.3 10*3 0.0-1.0 Automated eosinophil count 0.2 10*3/uL 0.0-0.3 Automated blood basophil count (count/volume) 0.0 10*3/uL 0.0-0.1 Comprehensive metabolic panel - 11/26/17 22:16 Serum or plasma sodium measurement (moles/volume) 142 mmol/L 135-145 Serum or plasma potassium measurement (moles/volume) 3.6 mmol/L 3.6-5.0 Serum or plasma chloride measurement (moles/volume) 109 mmol/L 98-107 Carbon dioxide 21 mmol/L 21-32 Serum or plasma anion gap determination (moles/volume) 12 mmol/L 5-14 Serum or plasma urea nitrogen measurement (mass/volume) 18 mg/dL 7-18 Serum or plasma creatinine measurement (mass/volume) 1.46 mg/dL 0.60-1.30 Serum or plasma urea nitrogen/creatinine mass ratio 12 NRG Serum or plasma creatinine measurement with calculation of estimated glomerular filtration rate 36 NRG Serum or plasma glucose measurement (mass/volume) 122 mg/dL 70-105 Serum or plasma calcium measurement (mass/volume) 8.5 mg/dL 8.5-10.1 Serum or plasma total bilirubin measurement (mass/volume) 0.7 mg/dL 0.1-1.0 Serum or plasma alkaline phosphatase measurement (enzymatic activity/volume) 122 U/L 40-136 Serum or plasma aspartate aminotransferase measurement (enzymatic activity/ volume) 17 U/L 5-34 Serum or plasma alanine aminotransferase measurement (enzymatic activity/volume ) 6 U/L 0-55 Serum or plasma protein measurement (mass/volume) 5.9 g/dL 6.4-8.2 Serum or plasma albumin measurement (mass/volume) 3.4 g/dL 3.2-4.5 Blood manual differential performed detection - 11/26/17 22:16 Blood monocytes/100 leukocytes 5 % NRG Manual blood segmented neutrophils/100 leukocytes 73 % NRG Blood band neutrophils/100 leukocytes 2 % NRG Manual blood lymphocytes/100 leukocytes 19 % NRG Manual eosinophils/100 leukocytes in nose 1 % NRG Manual blood basophils/100 leukocytes 0 % NRG Blood erythrocyte morphology finding identification NORMAL NRG Complete urinalysis with reflex to culture - 11/26/17 22:52 Urine color determination YELLOW NRG Urine clarity determination SLIGHTLY CLOUDY NRG Urine pH measurement by test strip 6 5-9 Specific gravity of urine by test strip 1.015 1.016- 1.022 Urine protein assay by test strip, semi-quantitative 2+ NEGATIVE Urine glucose detection by automated test strip NEGATIVE NEGATIVE Erythrocytes detection in urine sediment by light microscopy 5+ NEGATIVE Urine ketones detection by automated test strip NEGATIVE NEGATIVE Urine nitrite detection by test strip NEGATIVE NEGATIVE Urine total bilirubin detection by test strip NEGATIVE NEGATIVE Urine urobilinogen measurement by automated test strip (mass/volume) NORMAL NORMAL Urine leukocyte esterase detection by dipstick 3+ NEGATIVE Automated urine sediment erythrocyte count by microscopy (number/high power field) > [HPF] NRG Automated urine sediment leukocyte count by microscopy (number/high power field ) > [HPF] NRG Bacteria detection in urine sediment by light microscopy FEW NRG Squamous epithelial cells detection in urine sediment by light microscopy 0-2 NRG Crystals detection in urine sediment by light microscopy NONE NRG Casts detection in urine sediment by light microscopy NONE NRG Mucus detection in urine sediment by light microscopy NEGATIVE NRG Complete urinalysis with reflex to culture YES NRG Encounters ACCT No. Visit Date/Time Discharge Status Pt. Type Provider Facility Loc./Unit Complaint [id number] 10/21/2017 14:34:00 10/21/2017 23:59:59 CLS Outpatient TASHI HUGHES MD [facility] RAD ROUTINE [id number] 05/21/2017 11:23:00 05/21/2017 23:59:59 CLS Outpatient ARELI DODGE MD [facility] LAB E03.8 244.8 [id number] 01/28/2017 05:10:00 01/28/2017 08:20:00 DIS Emergency ALVAREZ RAM MD [facility] ER ABD PAIN,NAUSEA, DIARRHEA,POSS FEVER [id number] 11/12/2016 09:47:00 11/12/2016 23:59:59 CLS Outpatient ARELI DODGE MD [facility] LAB COLD [id number] 11/06/2016 22:35:00 11/07/2016 00:31:00 DIS Emergency MORENA BETANCOURT DO [facility] ER NAUSEA,HEADACHE [id number] 05/21/2016 09:35:00 05/21/2016 15:00:00 DIS Outpatient VINICIO HATFIELD DO [facility] [address] SCREENING,UPPER GASTRIC PAIN [id number] 05/15/2016 05:39:00 05/15/2016 12:51:00 DIS Outpatient VINICIO HATFIELD DO [facility] PREOP BLOOD IN STOOL [id number] 04/26/2016 07:59:00 04/26/2016 23:59:59 CLS Outpatient ARELI DODGE MD [facility] RAD EPIGASTRIC PAIN [id number] 04/27/2014 10:24:00 04/27/2014 23:59:59 CLS Outpatient TASHI HUGHES MD [facility] RAD SCREENING [id number] 11/26/2017 22:29:00 Document Registration [id number] 11/25/2017 07:00:00 PEN Preadmit TASHI HUGHES MD [facility] SDC VAGINAL PROLAPSE [id number] 11/21/2017 09:05:00 Document Registration [id number] 03/04/2011 00:00:00 Document Registration [id number] 02/21/2011 00:00:00 Document Registration [id number] 12/24/2010 10:54:00 Document Registration [id number] 12/14/2010 13:44:00 Document Registration [id number] 12/14/2010 08:31:00 Document Registration [id number] 12/13/2010 07:46:00 Document Registration [id number] 12/12/2010 07:52:00 Document Registration [id number] 12/06/2010 08:02:00 Document Registration [id number] 12/04/2010 11:04:00 Document Registration [id number] 12/01/2010 09:06:00 Document Registration [id number] 11/19/2010 10:48:00 Document Registration [id number] 11/12/2010 08:36:00 Document Registration [id number] 01/11/2010 10:39:00 Document Registration
[2017-11-27 00:50] VITALS: BP 118/60
[2017-11-27] MEDS ORDERED: PROMETHAZINE INJ 25 MG/ML (PHENERGAN) AMP IVP PRN (02:30)
[2017-11-27] MEDS ORDERED: fentaNYL INJECTION 100 MCG/2 ML AMP IVP PRN (02:30)
[2017-11-27] MEDS ORDERED: ONDANSETRON 4 MG/2 ML (SDV) Z0FRAN IVP PRN (02:30)
[2017-11-27] MEDS ORDERED: NS IV 1000 ML 1,000 ML IV SCH (03:00)
[2017-11-27 05:06] LABS: BASOPHILS % (AUTO) 0 % (0-10); EOSINOPHILS % (AUTO) 0 % (0-10); HEMATOCRIT 35 % (35-52); HEMOGLOBIN 11.6 G/DL (11.5-16.0); LYMPHOCYTES # (AUTO) 0.8 X 10^3 (1.0-4.0); LYMPHOCYTES % (AUTO) 6 % (12-44); MEAN CORPUSCULAR HEMOGLOBIN 31 PG (25-34); MEAN CORPUSCULAR HGB CONC 33 G/DL (32-36); MEAN CORPUSCULAR VOLUME 94 FL (80-99); MEAN PLATELET VOLUME 9.1 FL (7.4-10.4); MONOCYTES # (AUTO) 0.2 X 10^3 (0.0-1.0); MONOCYTES % (AUTO) 1 % (0-12); NEUTROPHILS # (AUTO) 12.4 X 10^3 (1.8-7.8); NEUTROPHILS % (AUTO) 93 % (42-75); PLATELET COUNT 225 10^3/uL (130-400); RED BLOOD COUNT 3.72 10^6/uL (4.35-5.85); RED CELL DISTRIBUTION WIDTH 12.1 % (10.0-14.5); WHITE BLOOD COUNT 13.4 10^3/uL (4.3-11.0)
[2017-11-27 05:10] VITALS: BP 118/61
[2017-11-27 05:23] LABS: CALCIUM 8.3 MG/DL (8.5-10.1); CREATININE SERUM 1.2 MG/DL (0.60-1.30); POTASSIUM 4.2 MMOL/L (3.6-5.0)
--- NOTE | 2017-11-27 08:21 | History & Physical ---
History and Physical Date Seen by Provider: Nov 27, 2017 Time Seen by Provider: 08:17 this patient is a 62-year-old white female who underwent anterior posterior repairs with pubovaginal sling and cystoscopy 2 days ago. She returns emergent and last night with nausea. She was found to have likely urinary tract infection was started on antibiotics and admitted for observation and hydration and antiemetics. She is symptomatically improved this morning. CT showed evidence of right hydronephrosis and ureteral dilation. That will be rechecked today. Patient denies pain. She does complain of urinary frequency. She states that her nausea is resolved although she worries about recurrent nausea because she had a fundoplication and cannot throw up. We discussed this and we' ll discuss antiemetics. Allergies are to sulfa Medications are Percocet and Motrin and Colace additional medications are per her H&P from recent admission Medical social histories are per her H&P from her surgical admission HEENT exam is normal Neck is supple no lymphadenopathy no thyromegaly Abdomen is soft nontender nondistended Extreme show clubbing cyanosis. Homans sign. Pelvic exam is deferred Lab work is as follows Laboratory Tests Test 11/26/17 22:16 11/26/17 22:52 11/27/17 04:50 Range/Units White Blood Count 16.0 H 13.4 H 4.3-11.0 10^3/uL Red Blood Count 3.73 L 3.72 L 4.35-5.85 10^6/uL Hemoglobin 11.5 11.6 11.5-16.0 G/DL Hematocrit 35 35 35-52 % Mean Corpuscular Volume 93 94 80-99 FL Mean Corpuscular Hemoglobin 31 31 25-34 PG Mean Corpuscular Hemoglobin Concent 33 33 32-36 G/DL Red Cell Distribution Width 12.1 12.1 10.0-14.5 % Platelet Count 231 225 130-400 10^3/uL Mean Platelet Volume 9.0 9.1 7.4-10.4 FL Neutrophils (%) (Auto) 78 H 93 H 42-75 % Lymphocytes (%) (Auto) 12 6 L 12-44 % Monocytes (%) (Auto) 8 1 0-12 % Eosinophils (%) (Auto) 1 0 0-10 % Basophils (%) (Auto) 0 0 0-10 % Neutrophils # (Auto) 12.5 H 12.4 H 1.8-7.8 X 10^3 Lymphocytes # (Auto) 2.0 0.8 L 1.0-4.0 X 10^3 Monocytes # (Auto) 1.3 H 0.2 0.0-1.0 X 10^3 Eosinophils # (Auto) 0.2 0.0 0.0-0.3 10^3/uL Basophils # (Auto) 0.0 0.0 0.0-0.1 10^3/uL Neutrophils % (Manual) 73 % Lymphocytes % (Manual) 19 % Monocytes % (Manual) 5 % Eosinophils % (Manual) 1 % Basophils % (Manual) 0 % Band Neutrophils 2 % Blood Morphology Comment NORMAL Sodium Level 142 141 135-145 MMOL/L Potassium Level 3.6 4.2 3.6-5.0 MMOL/L Chloride Level 109 H 109 H 98-107 MMOL/L Carbon Dioxide Level 21 20 L 21-32 MMOL/L Anion Gap 12 12 5-14 MMOL/L Blood Urea Nitrogen 18 16 7-18 MG/DL Creatinine 1.46 H 1.20 0.60-1.30 MG/DL Estimat Glomerular Filtration Rate 36 46 BUN/Creatinine Ratio 12 13 Glucose Level 122 H 137 H 70-105 MG/DL Calcium Level 8.5 8.3 L 8.5-10.1 MG/DL Total Bilirubin 0.7 0.1-1.0 MG/DL Aspartate Amino Transf (AST/SGOT) 17 5-34 U/L Alanine Aminotransferase (ALT/SGPT) 6 0-55 U/L Alkaline Phosphatase 122 40-136 U/L Total Protein 5.9 L 6.4-8.2 GM/DL Albumin 3.4 3.2-4.5 GM/DL Urine Color YELLOW Urine Clarity SLIGHTLY CLOUDY Urine pH 6 5-9 Urine Specific [place] 1.015 L 1.016-1.022 Urine Protein 2+ H NEGATIVE Urine Glucose (UA) NEGATIVE NEGATIVE Urine Ketones NEGATIVE NEGATIVE Urine Nitrite NEGATIVE NEGATIVE Urine Bilirubin NEGATIVE NEGATIVE Urine Urobilinogen NORMAL NORMAL MG/DL Urine Leukocyte Esterase 3+ H NEGATIVE Urine RBC (Auto) 5+ H NEGATIVE Urine RBC >100 H /HPF Urine WBC >100 H /HPF Urine Squamous Epithelial Cells 0-2 /HPF Urine Crystals NONE /LPF Urine Bacteria FEW H /HPF Urine Casts NONE /LPF Urine Mucus NEGATIVE /LPF Urine Culture Indicated YES signs are stable. Patient is afebrile. Vital Signs Date Time Temp Pulse Resp B/P (MAP) Pulse Ox O2 Delivery O2 Flow Rate FiO2 11/27/17 05:10 99.0 75 18 118/61 (80) 95 Room Air 11/27/17 00:50 98.1 78 18 118/60 (79) 94 Room Air 11/27/17 00:40 97.6 76 18 95 11/26/17 22:06 98.3 83 20 135/71 (92) 98 Room Air I & O 11/27/17 07:00 Intake Total 1050 ml Output Total 550 ml Balance 500 ml Assessment and plan 62-year-old that is post-pelvic surgery. Likely with urinary tract infection and is on appropriate antibiotics. She'll be continued on Macrobid pending a urine culture. We will perform an ultrasound of her ureters kidneys and bladder and discuss any results with Dr. Botello should there be manifestations of urinary tract injury. plan will be discharged home when symptoms are resolved and there is no overt issue to deal with UTI Allergies and Home Medications Allergies Coded Allergies: Sulfa (Sulfonamide Antibiotics) (Unverified Allergy, Unknown, 10/19/10) Home Medications Calcium Carbonate 600 Mg Tablet, 600 MG PO DAILY, (Reported) Docusate Sodium 100 Mg Capsule, 100 MG PO BID, #60 Prescribed by: TASHI TRAN on 11/26/17 0748 Esomeprazole Magnesium 40 Mg Cap, 40 MG PO DAILY, (Reported) Ibuprofen 800 Mg Tablet, 800 MG PO Q6HR, #60 Prescribed by: TASHI TRAN on 11/26/17 0748 Levothyroxine Sodium 50 Mcg Tablet, 100 MCG PO DAILY, (Reported) take 2 (50mcg) tabs Oxycodone HCl/Acetaminophen 1 Each Tablet, 1-2 TAB PO Q4HR PRN for PAIN- MODERATE TO SEVERE, #60 Prescribed by: TASHI TRAN on 11/26/17 0748 Vit A,C & E/Lutein/Minerals 1 Each Tablet, 1 EACH PO DAILY, (Reported) TASHI HUGHES MD Nov 27, 2017 08:21
--- NOTE | 2017-11-27 08:24 | Diagnostic Imaging Report ---
PROCEDURE: CT abdomen and pelvis without contrast. TECHNIQUE: Multiple contiguous axial images were obtained through the abdomen and pelvis without the use of intravenous contrast. INDICATION: Nausea. Post recent discharge from the hospitalization. CORRELATION STUDY: 01/28/2017 FINDINGS: LOWER THORAX: Clear. LIVER: Unremarkable. GALLBLADDER: Present and unremarkable. No bile duct dilatation. SPLEEN: Unremarkable. PANCREAS: Unremarkable. ADRENAL GLANDS: Unremarkable. KIDNEYS: There has been development of moderate right-sided hydroureteronephrosis since the prior study. A definitive radiopaque calculi, however, is not visualized. There is, however, question of increased density perhaps soft tissue prominence within the vesicouterine region, could result in some mass effect upon the distal right ureter as well as mild mass effect on base of the bladder. Left kidney and collecting system unremarkable. ABDOMINAL AORTA: Wall calcification, nonaneurysmal. GASTROINTESTINAL TRACT: Gastrointestinal tract demonstrates no definitive evidence for obstruction. Cecum sits low in the pelvis. The appendix is not well visualized, there is no secondary findings to suggest acute appendicitis. URINARY BLADDER: Soft tissue prominence at the bladder base is present. There is a small amount of free air adjacent to the right vesicouterine region, perhaps postoperative. REPRODUCTIVE: Post hysterectomy changes. OSSEOUS STRUCTURES: No acute abnormality. IMPRESSION: 1. Development of moderate right-sided hydroureteronephrosis. Obstructing calculus is not suggested. There is, however, suggestion of some soft tissue prominence in the vesicouterine area with small amount of free air adjacent to the right vesicouterine region. This appears to cause some mass effect upon the bladder base and may result in some mass effect above the vesicoureteral junction. Correlate with surgical history. A preliminary report was provided by [email or web address]. Dictated by: Dictated on workstation # [id number]
[2017-11-27] MEDS ORDERED: CITRIC ACID/SOB CIT (BICITRA) 30 ML UDC PO ONE (09:00)
[2017-11-27] MEDS ORDERED: NITROFURANTOIN 100 MG (MACROBID) CAPSULE PO SCH (09:00)
[2017-11-27 09:36] VITALS: BP 122/66
[2017-11-27] MEDS ORDERED: PANTOPRAZOLE 20 MG TABLET (PROTONIX) PO SCH (09:45)
--- NOTE | 2017-11-27 09:59 | Diagnostic Imaging Report ---
Renal ultrasound. INDICATION: Recent bladder surgery. Midline pain. FINDINGS: There is moderate right hydronephrosis and hydroureter seen in the abdomen. The distal ureter is not visualized. Demonstrate a lobulated appearance in the midline posteriorly which could be related to the provided history of recent bladder surgery. The left kidney demonstrates no hydronephrosis. The right kidney is 11.8 and the left kidney is 10.4 CM in length. Color Doppler demonstrates bilateral ureteric jets in the bladder. IMPRESSION: 1. There is a moderate right hydronephrosis. 2. Small focal lobulation in the posterior aspect of the urinary bladder. This may relate to the recent bladder surgery as provided in history. Dictated by: Dictated on workstation # [id number]
--- NOTE | 2017-11-27 10:05 | Diagnostic Imaging Report ---
EXAMINATION: Ultrasound of pelvis. INDICATION: Urinary frequency. Recent bladder surgery. FINDINGS: Urinary bladder appears unremarkable. Urinary bladder volume is 100 mL and postvoid volume is 58 mL. The lobulation along the posterior border could relate to a postsurgical change or from adjacent tissue edema. Correlate clinically. IMPRESSION: Post void residual volume is 58 mL. Lobulation around the posterior border of the bladder could relate to the recent surgery as provided by history. Correlate clinically. Dictated by: Dictated on workstation # [id number]
[2017-11-27 11:15] VITALS: BP 115/67
[2017-11-27] MEDS ORDERED: NITR100C10 PO (11:15)
[2017-11-27] MEDS ORDERED: ONDA4TAB8 PO (11:24)
[2017-11-27 11:49] VITALS: BP 122/76
[2017-11-28] MEDS ORDERED: cefTRIAXone INJECTION 1,000 MG in NS (IVPB) 50 ML IV SCH ×2
[2017-11-28] MEDS ORDERED: PANTOPRAZOLE 20 MG TABLET (PROTONIX) PO SCH (07:00)
== END 2017-11-27 11:12 | disposition home or self-care (01) ==
LOC: EDUNIT# 20:48 → ER 20:49 → WS 20:50 → UNDOADMOB 11-27 00:15 → WS 11-27 00:15 → UNDOADMOB 11-27 00:50 → UNDODISOB 11-27 11:12
PROVIDERS: ADMIT Obstetrics & Gynecology; ATTEND Obstetrics & Gynecology
DX: N39.0 Urinary tract infection, site not specified (principal); N13.30 Unspecified hydronephrosis; R01.1 Cardiac murmur, unspecified; E03.9 Hypothyroidism, unspecified; K21.9 Gastro-esophageal reflux disease without esophagitis; K44.9 Diaphragmatic hernia without obstruction or gangrene; Z79.899 Other long term (current) drug therapy
CPT/HCPCS: 36415; 74176; 76770; 76857; 80048; 80053; 81000; 85007; 85025; 85027; 87088; 96361; 96365; 96375; G0378

== ENCOUNTER → 2017-12-15 | Outpatient (CLI) | payer BC ==
[~2017-12-15] MED LIST changes: +NITR100C10 PO
--- NOTE | 2017-12-15 11:46 | Diagnostic Imaging Report ---
PROCEDURE: CT abdomen and pelvis without contrast. TECHNIQUE: Multiple contiguous axial images were obtained through the abdomen and pelvis without the use of intravenous contrast. INDICATION: Right hydronephrosis. Exam compared with study 11/26/2017. FINDINGS: Mild to moderate right hydroureteronephrosis is not appreciably changed in magnitude from the previous study. The extraluminal right hemipelvic gas on a presumed postoperative basis seen on the prior is no longer identified. Right pelvic and retroperitoneal postoperative induration has resolved. There is no fluid collection. The left kidney is unobstructed. Right renal hilar atherosclerotic calcifications and focal vascular ectasia unchanged from priors. Liver, spleen, adrenals, gallbladder, pancreas unremarkable. There is no bowel obstruction or ileus. No pneumatosis or free gas. No abscess, hematoma or other fluid collection. IMPRESSION: Mild to moderate right hydroureteronephrosis unchanged in magnitude from prior. We again note no opaque ureteral stone. Resolved postoperative air and retroperitoneal retroperitoneal infiltration. No adverse interval development. Dictated by: Dictated on workstation # [id number]
== END ==
LOC: RAD 07:57
PROVIDERS: ATTEND Urology
DX: N13.39 Other hydronephrosis (principal)
CPT/HCPCS: 74176

== ENCOUNTER → 2018-02-23 | Outpatient (CLI) | payer BC ==
--- NOTE | 2018-02-23 09:29 | Diagnostic Imaging Report ---
PROCEDURE: CT abdomen and pelvis without contrast. TECHNIQUE: Multiple contiguous axial images were obtained through the abdomen and pelvis without the use of intravenous contrast. INDICATION: Right-sided hydronephrosis. COMPARISON: Comparison is made with prior CT from 12/15/2017. FINDINGS: The lung bases are clear. The liver and gallbladder are unremarkable. The pancreas and spleen are unremarkable. No adrenal mass is detected. No renal calculi are seen. Previously noted right-sided hydroureteronephrosis has resolved. Renal vascular ectasia and atherosclerotic changes on the right are stable. Aorta is nonaneurysmal. Small marginal loops are of normal caliber. There is no ascites. The bladder is decompressed. IMPRESSION: Resolution of previously noted right-sided hydroureteronephrosis when compared with prior exam from 12/15/2017. No new abnormality is identified. No acute feature is detected. Dictated by: Dictated on workstation # [id number]
== END ==
LOC: RAD 08:53
PROVIDERS: ATTEND Urology
DX: Z87.448 Personal history of other diseases of urinary system (principal)
CPT/HCPCS: 74176

== ENCOUNTER → 2018-10-29 | Outpatient (CLI) | payer BC ==
[~2018-10-29] MED LIST changes: +METR-197 PO; -METR500T21 PO
--- NOTE | 2018-10-29 11:57 | Diagnostic Imaging Report ---
Indication: Routine screening. Comparison is made with prior mammogram from 10/21/2017 and 04/27/2014. 2-D and 3-D bilateral screening mammography was performed with CAD. Both breasts are heterogeneously dense, limiting the sensitivity of mammography. The parenchymal pattern is stable. No mass or malignant-appearing microcalcifications are seen. The axillae are unremarkable. Impression: BI-RADS category 1 No mammographic features suspicious for malignancy are identified. ACR BI-RADS Category 1: Negative. Result letter will be mailed to the patient. Note: At least 10% of breast cancer is not imaged by mammography. Dictated by: Dictated on workstation # [id number]
== END ==
LOC: RAD 09:49
PROVIDERS: ATTEND Obstetrics & Gynecology
DX: Z12.31 Encounter for screening mammogram for malignant neoplasm of breast (principal)
CPT/HCPCS: 77067

== ENCOUNTER 2018-11-09 15:56 | Emergency (ER) | payer BC ==
[~2018-11-09] VITALS: Ht 170.2 cm; Wt 74.4 kg
[2018-11-09] MEDS ORDERED: ASPIRIN 81 MG CHEW (CHILDREN'S ASA) PO ONE (16:00)
[2018-11-09 16:20] LABS: BASOPHILS # (AUTO) 0.1 10^3/uL (0.0-0.1); BASOPHILS % (AUTO) 1 % (0-10); EOSINOPHILS # (AUTO) 0.2 10^3/uL (0.0-0.3); EOSINOPHILS % (AUTO) 2 % (0-10); HEMATOCRIT 40 % (35-52); HEMOGLOBIN 13.3 G/DL (11.5-16.0); LYMPHOCYTES # (AUTO) 2.3 X 10^3 (1.0-4.0); LYMPHOCYTES % (AUTO) 31 % (12-44); MEAN CORPUSCULAR HEMOGLOBIN 31 PG (25-34); MEAN CORPUSCULAR HGB CONC 33 G/DL (32-36); MEAN CORPUSCULAR VOLUME 94 FL (80-99); MEAN PLATELET VOLUME 8.9 FL (7.4-10.4); MONOCYTES # (AUTO) 0.4 X 10^3 (0.0-1.0); MONOCYTES % (AUTO) 6 % (0-12); NEUTROPHILS # (AUTO) 4.6 X 10^3 (1.8-7.8); NEUTROPHILS % (AUTO) 61 % (42-75); PLATELET COUNT 281 10^3/uL (130-400); RED BLOOD COUNT 4.25 10^6/uL (4.35-5.85); RED CELL DISTRIBUTION WIDTH 12.3 % (10.0-14.5); WHITE BLOOD COUNT 7.6 10^3/uL (4.3-11.0)
[2018-11-09] MEDS ORDERED: ANTACID SUSP 30 ML UDC (MYLANTA) PO ONE (16:30)
[2018-11-09] MEDS ORDERED: ONDANSETRON 4 MG/2 ML (SDV) Z0FRAN IVP ONE (16:30)
[2018-11-09] MEDS ORDERED: LIDOCAINE 2% VISCOUS 15 ML UDC PO ONE (16:30)
[2018-11-09] MEDS ORDERED: FAMOTIDINE 20MG/2ML IV (PEPCID) IVP ONE (16:30)
[2018-11-09 16:35] LABS: PROTHROMBIN TIME PATIENT 13.1 SEC (12.2-14.7)
[2018-11-09 16:40] LABS: ALANINE AMINOTRANSFERASE 8 U/L (0-55); ALBUMIN 4.2 GM/DL (3.2-4.5); ALKALINE PHOSPHATASE 147 U/L (40-136); BILIRUBIN,TOTAL 0.5 MG/DL (0.1-1.0); BUN/CREATININE RATIO 18; CALCIUM 9.4 MG/DL (8.5-10.1); CARBON DIOXIDE 25 MMOL/L (21-32); CHLORIDE 107 MMOL/L (98-107); CREATININE SERUM 0.83 MG/DL (0.60-1.30); GFR ESTIMATED > 60; GLUCOSE 115 MG/DL (70-105); POTASSIUM 3.6 MMOL/L (3.6-5.0); SODIUM 142 MMOL/L (135-145); TOTAL PROTEIN 7.2 GM/DL (6.4-8.2)
[2018-11-09 16:47] LABS: MYOGLOBIN SERUM 31.2 NG/ML (10.0-92.0)
--- NOTE | 2018-11-09 17:28 | ED Chest Pain ---
General Chief Complaint: Chest Pain Stated Complaint: CHEST HEAVINESS/NAUSEA/STOMACH PAIN Nursing Triage Note: Pt has cc of chest pain for a couple days. Pt stated that she thought it was from the stress she has been having, but when she called [facility] they told her to come here. Pt complains of middle chest pain, nausea and indegestion. Nursing Sepsis Screen: No Definite Risk Source: patient Exam Limitations: no limitations History of Present Illness Date Seen by Provider: Nov 09, 2018 Time Seen by Provider: 16:00 Initial Comments This 63 old woman presents to the emergency room with complaints of epigastric and lower chest pain for the past 2 days. She also reports her heart sometimes skips a beat. She identifies no alleviating or exacerbating factors. She has had accompanying nausea without vomiting. She describes her pain as a pressure rated as 4/10 on the pain scale. She has a history of GERD, gastritis, and fundoplication. She takes Nexium. She goes to [facility] for her primary care. Allergies and Home Medications Allergies Coded Allergies: Sulfa (Sulfonamide Antibiotics) (Unverified Allergy, Unknown, 10/19/10) Home Medications Calcium Carbonate 600 Mg Tablet, 600 MG PO DAILY, (Reported) Docusate Sodium 100 Mg Capsule, 100 MG PO BID Prescribed by: TASHI TRAN on 11/26/17 0748 Esomeprazole Magnesium 40 Mg Cap, 40 MG PO DAILY, (Reported) Famotidine 20 Mg Tablet, 20 MG PO BID Prescribed by: INDIA SMILEY on 11/09/18 1730 Ibuprofen 800 Mg Tablet, 800 MG PO Q6HR Prescribed by: TASHI TRAN on 11/26/17 0748 Levothyroxine Sodium 50 Mcg Tablet, 100 MCG PO DAILY, (Reported) take 2 (50mcg) tabs Nitrofurantoin Monohyd/M-Cryst 100 Mg Capsule, 100 MG PO BID Prescribed by: VICENTA HAAS on 11/27/17 1115 Ondansetron 4 Mg Tab.rapdis, 4 MG PO Q6H PRN for NAUSEA/VOMITING-1ST LINE Prescribed by: VICENTA HAAS on 11/27/17 1124 Oxycodone HCl/Acetaminophen 1 Each Tablet, 1-2 TAB PO Q4HR PRN for PAIN- MODERATE TO SEVERE Prescribed by: TASHI TRAN on 11/26/17 0748 Sucralfate 1 Gm/10 Ml Oral.susp, 1 GM PO QID 30 minutes before eating or drinking at mealtime and before bed Prescribed by: INDIA SMILEY on 11/09/18 1730 Vit A,C & E/Lutein/Minerals 1 Each Tablet, 1 EACH PO DAILY, (Reported) Patient Home Medication List Home Medication List Reviewed: Yes Review of Systems Review of Systems Constitutional: no symptoms reported EENTM: No Symptoms Reported Respiratory: No Symptoms Reported Cardiovascular: See HPI Gastrointestinal: See HPI Genitourinary: No Symptoms Reported Musculoskeletal: no symptoms reported Skin: no symptoms reported Psychiatric/Neurological: No Symptoms Reported Endocrine: No Symptoms Reported Hematologic/Lymphatic: No Symptoms Reported Past Mzqnvfk-Phojli-Uwcqmc Hx Past Med/Social Hx: Reviewed Nursing Past Med/Soc Hx Patient Social History Alcohol Use: Denies Use Recreational Drug Use: No Smoking Status: Never a Smoker 2nd Hand Smoke Exposure: No Recent Foreign Travel: No Contact w/Someone Who Travel: No Recent Infectious Disease Expo: No Recent Hopitalizations: Yes (11/25/17 SURGERY) Physical Abuse: No Sexual Abuse: No Mistreated: No Fear: No Immunizations Up To Date Tetanus Booster (TDap): Unknown Date of Influenza Vaccine: Aug 31, 2018 Seasonal Allergies Seasonal Allergies: No Past Medical History Surgeries: Yes (BARRY FUNDOPLICATION) Abdominal, Appendectomy, Bladder Surgery, Eye Surgery, Hysterectomy, Oophorectomy, Tubal Ligation Respiratory: No Cardiac: Yes (mild murmur) Heart Murmur Neurological: No Reproductive Disorders: No 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 10.6oz. 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 Norm as Tested Skin: Normal Color, Warm/Dry Progress/Results/Core Measures Results/Orders Lab Results Laboratory Tests Test 11/09/18 16:11 Range/Units White Blood Count 7.6 4.3-11.0 10^3/uL Red Blood Count 4.25 L 4.35-5.85 10^6/uL Hemoglobin 13.3 11.5-16.0 G/DL Hematocrit 40 35-52 % Mean Corpuscular Volume 94 80-99 FL Mean Corpuscular Hemoglobin 31 25-34 PG Mean Corpuscular Hemoglobin Concent 33 32-36 G/DL Red Cell Distribution Width 12.3 10.0-14.5 % Platelet Count 281 130-400 10^3/uL Mean Platelet Volume 8.9 7.4-10.4 FL Neutrophils (%) (Auto) 61 42-75 % Lymphocytes (%) (Auto) 31 12-44 % Monocytes (%) (Auto) 6 0-12 % Eosinophils (%) (Auto) 2 0-10 % Basophils (%) (Auto) 1 0-10 % Neutrophils # (Auto) 4.6 1.8-7.8 X 10^3 Lymphocytes # (Auto) 2.3 1.0-4.0 X 10^3 Monocytes # (Auto) 0.4 0.0-1.0 X 10^3 Eosinophils # (Auto) 0.2 0.0-0.3 10^3/uL Basophils # (Auto) 0.1 0.0-0.1 10^3/uL Prothrombin Time 13.1 12.2-14.7 SEC INR Comment 1.0 0.8-1.4 Activated Partial Thromboplast Time 31 24-35 SEC Sodium Level 142 135-145 MMOL/L Potassium Level 3.6 3.6-5.0 MMOL/L Chloride Level 107 98-107 MMOL/L Carbon Dioxide Level 25 21-32 MMOL/L Anion Gap 10 5-14 MMOL/L Blood Urea Nitrogen 15 7-18 MG/DL Creatinine 0.83 0.60-1.30 MG/DL Estimat Glomerular Filtration Rate > 60 BUN/Creatinine Ratio 18 Glucose Level 115 H 70-105 MG/DL Calcium Level 9.4 8.5-10.1 MG/DL Corrected Calcium 9.2 8.5-10.1 MG/DL Magnesium Level 2.0 1.8-2.4 MG/DL Total Bilirubin 0.5 0.1-1.0 MG/DL Aspartate Amino Transf (AST/SGOT) 16 5-34 U/L Alanine Aminotransferase (ALT/SGPT) 8 0-55 U/L Alkaline Phosphatase 147 H 40-136 U/L Myoglobin 31.2 10.0-92.0 NG/ML Troponin I < 0.30 <0.30 NG/ML Total Protein 7.2 6.4-8.2 GM/DL Albumin 4.2 3.2-4.5 GM/DL Lipase 13 8-78 U/L My Orders Orders - INDIA KEATING MD Lipase (11/09/18 16:16) Famotidine Injection (Pepcid Injection) (11/09/18 16:30) Lidocaine 2% Viscous 15 Ml (Xylocaine Vi (11/09/18 16:30) Antacid Suspension (Mylanta Suspension (11/09/18 16:30) Ondansetron Injection (Zofran Injectio (11/09/18 16:30) Medications Given in ED Current Medications Medications Dose Ordered Sig/Roland Route Start Time Stop Time Status Last Admin Dose Admin Al Hydrox/Mg Hydrox/Simethicone 30 ml ONCE ONCE PO 11/09/18 16:30 11/09/18 16:31 DC 11/09/18 16:39 30 ML Aspirin 324 mg ONCE ONCE PO 11/09/18 16:00 11/09/18 16:01 DC 11/09/18 16:39 324 MG Famotidine 20 mg ONCE ONCE IVP 11/09/18 16:30 11/09/18 16:31 DC 11/09/18 16:42 20 MG Lidocaine HCl 15 ml ONCE ONCE PO 11/09/18 16:30 11/09/18 16:31 DC 11/09/18 16:39 15 ML Ondansetron HCl 4 mg ONCE ONCE IVP 11/09/18 16:30 11/09/18 16:31 DC 11/09/18 16:41 4 MG Vital Signs/I&O 11/09/18 11/09/18 16:11 17:35 Temp 97.6 97.6 Pulse 80 73 Resp 17 15 B/P (MAP) 146/79 (101) 135/71 (92) Pulse Ox 100 99 O2 Delivery Room Air Room Air Blood Pressure Mean: 101 Progress Progress Note : Time: 17:21 Progress Note Patient received aspirin as part of the chest pain protocol. She also received a GI cocktail and Pepcid. This reduced her pain from 4/10 down to 2/10. By history patient's pain sounds atypical from a GI source. On repeat examination she is found to be mildly tender to palpation in the epigastrium. I did inform patient that while her workup was negative in the ER, pain from cardiac disease cannot be completely ruled out in the ER. I offered admission for observation and cardiology consultation. Patient declines and expresses understanding that a cardiac cause of her pain cannot be completely ruled out in the ER. I have advised patient that she maximize her therapy for acid reflux by adding Pepcid and Carafate. Patient commits to returning if symptoms worsen. She will seek outpatient referral to cardiology. Initial ECG Impression Date: Nov 09, 2018 Initial ECG Impression Time: 15:58 Initial ECG Rate: 77 Initial ECG Rhythm: Normal Sinus Initial ECG Intervals: Normal Initial ECG Impression: Normal Comment Normal sinus rhythm with no ST elevation or depression. No abnormal intervals or axis deviation. Diagnostic Imaging Diagonstic Imaging: Xray Plain Films/CT/US/NM/MRI: chest Comments Chest x-ray viewed by me and report reviewed. See report below: NAME: PRACHI SARABIA [facility] REC#: [id number] PT STATUS: REG ER : 1955 PHYSICIAN: WIL VAZQUEZ APRN ADMIT DATE: 11/09/18/ER Draft Date of Exam:11/09/18 CHEST 1 VIEW, AP/PA ONLY INDICATION: Chest heaviness. TECHNIQUE: Single view chest 5:08 PM. CORRELATION STUDY: 01/28/2017 FINDINGS: Heart size borderline. Vasculature overall within normal limits. The lungs are clear with no consolidating infiltrate. There is no significant effusion or pneumothorax. IMPRESSION: 1. Generally stable chest demonstrates no acute abnormality. Dictated on workstation # [id number] Dict: 11/09/18 1722 Trans: 11/09/18 1739 [facility] [id number] Interpreted by: NICHOLAS OAKES DO Departure Impression Primary Impression: Atypical chest pain Additional Impressions: Gastroesophageal reflux Qualified Codes: K21.9 - Gastro-esophageal reflux disease without esophagitis Epigastric pain Disposition: HOME, SELF-CARE Condition: Improved Departure-Patient Inst. Decision time for Depature: 17:26 Referrals: ARELI DODGE MD (PCP/Family) Primary Care Physician Patient Instructions: Chest Pain (DC), Acid Reflux (Gastroesophageal Reflux Disease), Adult (DC) Add. Discharge Instructions: Add Pepcid (famotidine) as prescribed. Also add Carafate (sucralfate) as prescribed. Follow-up with your primary care provider soon as possible. Discussed referral to a induction coordination engineer for further assessment of chest pain. Also follow-up with Dr. Hatfield. Return to the emergency room if symptoms worsen. Avoid the following: Eating large meals, eating close to bedtime, caffeine, carbonation, citrus fruits and juices, chocolate, mints, tomato products, caffeine, alcohol, fatty or greasy foods, NSAID medications such as ibuprofen or naproxen, or anything else you know irritates your stomach. All discharge instructions reviewed with patient and/or family. Voiced understanding. Scripts Sucralfate (Carafate) 1 Gm/10 Ml Oral.susp 1 GM PO QID, #1200 ML 30 minutes before eating or drinking at mealtime and before bed Prov: INDIA KEATING MD 11/09/18 Famotidine (Pepcid) 20 Mg Tablet 20 MG PO BID, #60 TAB Prov: INDIA KEATING MD 11/09/18 Copy Copies To 1: PLACIDO GANDARA MD Copies To 2: VINICIO HATFIELD JOSHUA T MD Nov 09, 2018 17:28
[2018-11-09] MEDS ORDERED: SUCR1ORA5 PO (17:30)
[2018-11-09] MEDS ORDERED: FAMO-119 PO (17:30)
[2018-11-09 17:35] VITALS: BP 135/71
--- NOTE | 2018-11-09 17:39 | Diagnostic Imaging Report ---
INDICATION: Chest heaviness. TECHNIQUE: Single view chest 5:08 PM. CORRELATION STUDY: 01/28/2017 FINDINGS: Heart size borderline. Vasculature overall within normal limits. The lungs are clear with no consolidating infiltrate. There is no significant effusion or pneumothorax. IMPRESSION: 1. Generally stable chest demonstrates no acute abnormality. Dictated by: Dictated on workstation # [id number]
== END 2018-11-09 17:35 | disposition home or self-care (01) ==
LOC: EDUNIT# 15:56 → ER 15:57
DX: R07.89 Other chest pain (principal); K21.9 Gastro-esophageal reflux disease without esophagitis; E03.9 Hypothyroidism, unspecified; Z87.440 Personal history of urinary (tract) infections; Z14.01 Asymptomatic hemophilia A carrier; Z98.890 Other specified postprocedural states; Z90.710 Acquired absence of both cervix and uterus; Z98.51 Tubal ligation status; Z90.49 Acquired absence of other specified parts of digestive tract; Z87.19 Personal history of other diseases of the digestive system; Z88.2 Allergy status to sulfonamides
CPT/HCPCS: 36415; 71045; 80053; 83690; 83735; 83874; 84484; 85025; 85610; 85730; 93005; 93041; 96374; 96375

== ENCOUNTER → 2018-11-19 | Outpatient (CLI) | payer BC ==
[~2018-11-19] MED LIST changes: +FAMO-119 PO
--- NOTE | 2018-11-19 19:16 | Diagnostic Imaging Report ---
INDICATION: Screening for osteoporosis COMPARISON: No prior studies are available for comparison. EXAMINATION: The bone mineral density of the hips and spine was measured. FINDINGS: The T-score for the spine is -0.3. The T-score for each hip is -0.5. These values do fall within the range of normal. IMPRESSION: 1. The bone mineral density of the hips and spine is within normal limits. 2. See below National Osteoporosis Foundation guidelines on when to potentially initiate pharmacologic therapy. AP Spine L1-L4: [BMD (g/cm2): 1.164] [T-Score: -0.3] [Z-Score: 0.8] [BMD Previous: N/A] [BMD % Change: N/A] LT Hip Neck: [BMD (g/cm2): 0.943] [T-Score: -0.7] [Z-Score: 0.5] LT Hip Total: [BMD (g/cm2):0.942] [T-Score:-0.5] [Z-Score: 0.4] [BMD Previous: N/A] [BMD % Change: N/A] RT Hip Neck: [BMD (g/cm2):0.955] [T-Score:-0.6] [Z-Score:0.6] RT Hip Total: [BMD (g/cm2):0.947] [T-score:-0.5] [Z-Score:0.4] [BMD Previous: N/A] [BMD % Change: N/A] *Indicates significant change from prior examination based on 95% confidence level. World Health Organization criteria for BMD interpretation classify patients as Normal (T-score at or above -1.0), Osteopenic (T-score between -1.0 and -2.5) or Osteoporotic (T-score at or below -2.5). LIMITATIONS AND MODIFICATION: None. FRACTURE RISK (FRAX SCORE): The ten year probability of (%): Major Osteoporotic Fracture: [N/A] Hip Fracture: [N/A] Based on the National Osteoporosis Foundation Guidelines, pharmacologic treatment should be initiated in any of the following, unless clinical conditions suggest otherwise: * Any patient with prior fragility fracture of the hip or vertebrae. A spine fracture indicates 5X risk for subsequent spine fracture and 2X risk for subsequent hip fracture. * Osteoporosis (T-score <-2.5). * Postmenopausal women and men age 50 and older with low bone mass/osteopenia (T-score between -1.0 and -2.5) by DXA and 10-year major osteoporotic fracture greater than 20% or a 10-year probability of hip fracture greater than 3%. These fracture risks are supplied above in the FRAX score, if applicable. * Clinician judgement and/or patient preferences may indicate treatment for people with 10-year fracture probabilities above or below these levels. Dictated by: Dictated on workstation # [id number]
== END ==
LOC: RAD 10:15
PROVIDERS: ATTEND Nurse Practitioner Primary Care
DX: Z13.820 Encounter for screening for osteoporosis (principal)
CPT/HCPCS: 77080

== ENCOUNTER → 2018-12-22 | Outpatient (CLI) | payer BC ==
[~2018-12-22] MED LIST changes: +CATHETER FLUSH 10 ML SYR IV PRN; +METR-145 PO; -METR-197 PO; +REGADENOSON 0.4 MG/5 ML SYR (LEXISCAN) IV ONE
== END ==
LOC: CARD 07:55
PROVIDERS: ATTEND Nurse Practitioner Family
DX: R07.9 Chest pain, unspecified (principal); E03.9 Hypothyroidism, unspecified; R06.09 Other forms of dyspnea; Z86.79 Personal history of other diseases of the circulatory system
CPT/HCPCS: 78452; 93017

== ENCOUNTER → 2019-01-05 | Outpatient (CLI) | payer BC ==
[~2019-01-05] MED LIST changes: -CATHETER FLUSH 10 ML SYR IV PRN; -REGADENOSON 0.4 MG/5 ML SYR (LEXISCAN) IV ONE
== END ==
LOC: CARD 08:37
PROVIDERS: ATTEND Nurse Practitioner Family
DX: R07.9 Chest pain, unspecified (principal); I34.0 Nonrheumatic mitral (valve) insufficiency; E03.9 Hypothyroidism, unspecified; R06.09 Other forms of dyspnea; Z86.79 Personal history of other diseases of the circulatory system
CPT/HCPCS: 93306

== ENCOUNTER → 2019-08-26 | Outpatient (CLI) | payer BC ==
--- NOTE | 2019-08-26 10:14 | Diagnostic Imaging Report ---
PROCEDURE: CT abdomen and pelvis without contrast. TECHNIQUE: Multiple contiguous axial images were obtained through the abdomen and pelvis without the use of intravenous contrast. Auto Exposure Controls were utilized during the CT exam to meet ALARA standards for radiation dose reduction. INDICATION: Hydronephrosis. Correlation is made with prior CT from 02/23/2018. FINDINGS: The lung bases are clear. The liver and gallbladder are unremarkable. No biliary ductal dilatation is seen. Pancreas and spleen are unremarkable. No adrenal mass is seen. No renal calculi are detected. No renal calculi or hydronephrosis is seen. Aorta shows some atherosclerotic calcifications but is non-aneurysmal. The small and large bowel loops appear nonobstructed. There is no free fluid or fluid collection identified. Bladder is decompressed. No definite abdominal or pelvic lymphadenopathy is seen. Bony structures are nonacute. IMPRESSION: Stable noncontrast CT abdomen and pelvis since exam from 02/23/2018. No acute feature is seen. There is no evidence of hydronephrosis. Dictated by: Dictated on workstation # [id number]
== END ==
LOC: RAD 08:44
PROVIDERS: ATTEND Urology
DX: N13.30 Unspecified hydronephrosis (principal)
CPT/HCPCS: 74176

== ENCOUNTER → 2019-11-18 | Outpatient (CLI) | payer BC ==
--- NOTE | 2019-11-18 13:08 | Diagnostic Imaging Report ---
INDICATION: Routine screening. COMPARISON is made with prior mammograms from 10/29/2018 and 10/21/2017. 2-D and 3-D bilateral screening mammography was performed with CAD. Both breasts are heterogeneously dense, limiting the sensitivity of mammography. Parenchymal pattern is stable. No mass or malignant appearing microcalcifications are seen. Axillae are unremarkable. IMPRESSION: BI-RADS Category 1 No mammographic features suspicious for malignancy are identified. ACR BI-RADS Category 1: Negative. Result letter will be mailed to the patient. Note: At least 10% of breast cancer is not imaged by mammography. Dictated by: Dictated on workstation # [id number]
== END ==
LOC: RAD 10:34
PROVIDERS: ATTEND Obstetrics & Gynecology
DX: Z12.31 Encounter for screening mammogram for malignant neoplasm of breast (principal)
CPT/HCPCS: 77067

== ENCOUNTER → 2021-01-26 | Outpatient (CLI) | payer BC, MEDICARE ==
[~2021-01-26] VITALS: Ht 170 cm; Wt 76.0 kg
[~2021-01-26] MED LIST changes: -CALC600T12 PO; +CATHETER FLUSH 10 ML SYR IV PRN; -CIPR500T4 PO; +CIPR500T5 PO; +CLC600T PO; -OXYC-465 PO; +OXYC-556 PO; +REGADENOSON 0.4 MG/5 ML SYR (LEXISCAN) IV ONE
[2021-01-26 09:24] VITALS: BP 141/75
--- NOTE | 2021-01-29 15:41 | STRESS TEST ---
DATE OF SERVICE: 01/26/2021 RESTING AND POST REGADENOSON TECHNETIUM-99M TETROFOSMIN SPECT CT IMAGING ORDERING PHYSICIAN: Dr. Portillo. PRIMARY PHYSICIAN: [facility]. CLINICAL DIAGNOSIS: Chest discomfort. Baseline images were carried out after injection of 10.69 mCi of technetium-99m Tetrofosmin. This was followed by 0.4 mg of Regadenoson and 29.6 mCi of technetium-99m Tetrofosmin for stress imaging. The electrocardiogram did not change significantly with the Regadenoson infusion. The patient noted some mild abdominal discomfort and mild shortness of breath. The symptom resolved in a few minutes. Review of images at rest and following stress does not indicate any significant perfusion defects consistent with myocardial ischemia or infarction. Gated images show normal global left ventricular systolic function with normal regional wall motion. Left ventricular ejection fraction is calculated to be 66%. Left ventricular end diastolic volume is 54 mL. TID is absent (0.98). CONCLUSIONS: 1. No evidence of any significant myocardial ischemia or infarction. 2. Normal regional wall motion. 3. Normal global left ventricular systolic function with a calculated ejection fraction of 66%. Job ID: [id number] DocumentID: [id number] Dictated Date: 01/29/2021 13:19:06 Health Occupations Teacher Date: 01/29/2021 15:40:10 Dictated By: PRANAY PORTILLO MD, MA, FACP, FACC,
== END ==
LOC: CARD 08:15
PROVIDERS: ATTEND Internal Medicine Cardiovascular Disease
DX: R07.89 Other chest pain (principal)
CPT/HCPCS: 78452; 93017; A9502

== ENCOUNTER → 2021-04-25 | Outpatient (CLI) | payer MEDICARE ==
[~2021-04-25] MED LIST changes: +CALC600T91 PO; -CATHETER FLUSH 10 ML SYR IV PRN; -CLC600T PO; -REGADENOSON 0.4 MG/5 ML SYR (LEXISCAN) IV ONE
--- NOTE | 2021-04-25 09:14 | Diagnostic Imaging Report ---
INDICATION: Routine screening. COMPARISON: 11/18/2019 and 10/29/2018. TECHNIQUE: 2D and 3D bilateral screening mammography was performed with CAD. FINDINGS: Both breasts are heterogeneously dense, limiting the sensitivity of mammography. No mass or malignant appearing microcalcifications are seen. The axillae are unremarkable. IMPRESSION: No mammographic features suspicious for malignancy are identified. ACR BI-RADS Category 1: Negative. Result letter will be mailed to the patient. Note: At least 10% of breast cancer is not imaged by mammography. Dictated by: Dictated on workstation # [id number]
== END ==
LOC: RAD 07:29
PROVIDERS: ATTEND Physician Assistant
DX: Z12.31 Encounter for screening mammogram for malignant neoplasm of breast (principal)
CPT/HCPCS: 77063; 77067

== ENCOUNTER → 2021-08-24 | Outpatient (CLI) | payer MEDICARE | LOC: CARD 09:30 | PROVIDERS: ATTEND Nurse Practitioner Family | DX: I34.0 Nonrheumatic mitral (valve) insufficiency (principal) | CPT/HCPCS: 93306 ==

== ENCOUNTER 2022-05-27 11:12 | Emergency (ER) | payer MEDICARE ==
[~2022-05-27] VITALS: Ht 170 cm; Wt 80.7 kg
[2022-05-27] MEDS ORDERED: TETANUS,DIPTH,PERTUSS P/F (BOOSTRIX) 0.5 ML VIAL IM ONE (12:00)
--- NOTE | 2022-05-27 12:07 | ED Fall/Injury ---
General Chief Complaint: Trauma-Non Activation Stated Complaint: FELL, HIT HEAD Nursing Triage Note: FELL AT [facility] IN [place] WHEN SHE TRIPPED AND FELL HITTING HER HEAD. HIT HEAD ON GLASS DOOR, KNOCKED GLASSES OFF CUT HER HEAD ABOVE LEFT EYEBROW. DENIES LOC OR USE OPF BLOOD THINNER WITH EXCEPTION OF 81MG ASA. History of Present Illness Date Seen by Provider: May 27, 2022 Time Seen by Provider: 11:28 Initial Comments 67-year-old female reports falling at approximately 0930 this morning. She hit the left frontal region on a glass door. There was no loss of consciousness. She sustained a mild abrasion to the area. She has not had Tylenol or ibuprofen since the injury. She reports a mild headache, no visual c hanges, no seizure activity, no change in mental status. She is alert and oriented. She is not on anticoagulants. She denies acute neck pain, she has chronic history of degenerative disc disease of the cervical spine. No recent concussions or head injuries. She has history of stress induced chest pain, she sees Dr. Mccarthy. She denies chest pain today, but reports just after the fall feeling a brief heaviness in her chest that lasted less than 1 min. Occurred: just prior to arrival Injuries/Pain Location: head Context: lost balance Loss of Consciousness: no loss of consciousness Associated Symptoms (Fall): No Abdominal Pain, No Chest Pain, No Confusion, No Dizziness; Headache; No Lightheadedness, No Muscle Spasms, No Nausea/Vomiting, No Neck Pain, No Slurred Speech, No Vision Changes Allergies and Home Medications Allergies Coded Allergies: Sulfa (Sulfonamide Antibiotics) (Unverified Allergy, Unknown, 10/19/10) Patient Home Medication List Home Medication List Reviewed: Yes Calcium Carbonate (Calcium) 600 Mg Tablet, 600 MG PO DAILY, (Reported) Entered as Reported by: LISA HOOD on 11/21/17 08 Docusate Sodium (Docusate Sodium) 100 Mg Capsule, 100 MG PO BID Prescribed by: TASHI TRAN on 11/26/17 0748 Esomeprazole Magnesium (Nexium) 40 Mg Cap, 40 MG PO DAILY, (Reported) Entered as Reported by: LISA HOOD on 11/21/17 0829 Famotidine (Pepcid) 20 Mg Tablet, 20 MG PO BID Prescribed by: INDIA SMILEY on 11/09/18 1730 Ibuprofen (Ibuprofen) 800 Mg Tablet, 800 MG PO Q6HR Prescribed by: TASHI TRAN on 11/26/17 0748 Levothyroxine Sodium (Levothyroxine Sodium) 50 Mcg Tablet, 100 MCG PO DAILY, (Reported) Entered as Reported by: LISA HOOD on 05/15/16 1249 Nitrofurantoin Monohyd/M-Cryst (Nitrofurantoin [place]-Mcr 100 mg) 100 Mg Capsule, 100 MG PO BID Prescribed by: VICENTA HAAS on 11/27/17 1115 Ondansetron (Zofran Odt) 4 Mg Tab.rapdis, 4 MG PO Q6H PRN for NAUSEA/VOMITING- 1ST LINE Prescribed by: VICENTA HAAS on 11/27/17 1124 Oxycodone HCl/Acetaminophen (Oxycodone-Acetaminophen 10-325) 1 Each Tablet, 1-2 TAB PO Q4HR PRN for PAIN-MODERATE TO SEVERE Prescribed by: TASHI TRAN on 11/26/17 0748 Sucralfate (Carafate) 1 Gm/10 Ml Oral.susp, 1 GM PO QID Prescribed by: INDIA SMILEY on 11/09/18 1730 Vit A,C & E/Lutein/Minerals (Vision Vitamins Tablet) 1 Each Tablet, 1 EACH PO DAILY, (Reported) Entered as Reported by: LISA HOOD on 11/21/17 0829 Review of Systems Review of Systems Constitutional: no symptoms reported, see HPI Musculoskeletal: see HPI, neck pain (chronic, no change in symptoms. ) Skin: see HPI, other (1 cm lac to left frontal region) All Other Systems Reviewed Negative Unless Noted: No Past [place]-Umjnde Hx Patient Social History Tobacco Use?: No Use of E-Cig and/or Vaping dev: No Substance use?: No Alcohol Use?: No Immunizations Up To Date Tetanus Booster (TDap): Unknown First/Initial COVID19 Vaccinat: 2020 Second COVID19 Vaccination García: 2020 COVID19 Vaccine Combining Machine Operator: Marquita Seasonal Allergies Seasonal Allergies: No Past Medical History Surgeries: Yes (BARRY FUNDOPLICATION) Abdominal, Appendectomy, Bladder Surgery, Eye Surgery, Hysterectomy, Oophorectomy, Tubal Ligation Respiratory: No Cardiac: Yes (mild murmur) Heart Murmur Neurological: No Reproductive Disorders: No 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 10.6oz. 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 Trace bleeding. Mild swelling but no ecchymosis. ) Procedures/Interventions Wound Location: Face Other Wound Location 1 Wound's Depth, Shape: superficial Irrigated w/ Saline (ccs): 100 Betadine Prep?: Yes Other Closure Supply: Wound Adhesive Sterile Dressing Applied?: No Progress Wound well approximated with skin adhesive. Patient tolerated procedure well. Progress/Results/Core Measures Results/Orders My Orders Orders - ANNALISA PERES Ekg Tracing (05/27/22 11:32) Dipht,Pertuss(Acell),Tet Adult (Boostrix (05/27/22 12:00) Acetaminophen Tablet/Caplet (Tylenol T (05/27/22 12:10) Medications Given in ED Current Medications Medications Dose Ordered Sig/Roland Route Start Time Stop Time Status Last Admin Dose Admin Diphtheria/ Tetanus/Acell Pertussis 0.5 ml ONCE ONCE IM 05/27/22 12:00 05/27/22 12:01 DC 05/27/22 12:44 0.5 ML Vital Signs/I&O 05/27/22 05/27/22 11:30 11:30 Temp 36.7 36.7 Pulse 72 72 Resp 18 18 B/P (MAP) 155/81 (105) 155/81 (105) Pulse Ox 98 98 O2 Delivery Room Air Room Air Blood Pressure Mean: 105 Progress Progress Note : Time: 11:28 Progress Note Patient seen and evaluated, will monitor and reevaluate. 12:00 patient has remained neurologically intact with no complaints. Awaiting her tetanus vaccine and Tylenol from the nurse. Discharge instructions and return precautions reviewed with her. Initial ECG Impression Date: May 27, 2022 Initial ECG Impression Time: 11:36 Initial ECG Rate: 71 Initial ECG Rhythm: Normal Sinus Initial ECG Intervals: Normal Initial ECG Intervals IL 141, QRSD 99, QT 387, QTc 409, axis P 29, R- 9, T 30. Initial ECG Impression: Normal Initial ECG Comparisson: Unchanged Departure Impression Primary Impression: Fall Qualified Codes: W19.XXXA - Unspecified fall, initial encounter Additional Impressions: Contusion Qualified Codes: S00.83XA - Contusion of other part of head, initial encounter Laceration of forehead without complication Qualified Codes: S01.81XA - Laceration without foreign body of other part of head, initial encounter Disposition: 01 HOME, SELF-CARE Condition: Improved Departure-Patient Inst. Decision time for Depature: 12:00 Referrals: [facility] (PCP) Primary Care Physician ZANA HAMLIN (Family) Primary Care Physician Patient Instructions: Laceration Repair With Glue (DC) Add. Discharge Instructions: Alternate Tylenol 600 mg and ibuprofen 600 mg every 4 hours for headache. Apply ice pack to your forehead for 20 minutes every 2 hours. Activity as tolerated, avoid any aggressive activity, or working from an elevated surface. Limit time on phone, tablet, TV. Increase water intake. Follow-up with your primary care provider if symptoms or not improving or worsen. Return to the emergency department for change in mental status, confusion, seizure, nausea and vomiting, worsening headache. All discharge instructions reviewed with patient and/or family. Voiced understanding. ANNALISA PERES May 27, 2022 12:07
[2022-05-27] MEDS ORDERED: ACETAMINOPHEN 325 MG TABLET PO STA (12:10)
[2022-05-27 12:50] VITALS: BP 159/89
== END 2022-05-27 12:50 | disposition home or self-care (01) ==
LOC: EDUNIT# 11:12 → ER 11:14
DX: S01.81XA Laceration without foreign body of other part of head, initial encounter (principal); Z23 Encounter for immunization; W01.110A Fall on same level from slipping, tripping and stumbling with subsequent striking against sharp glass, initial encounter
CPT/HCPCS: 90715; 93005

== ENCOUNTER → 2023-02-18 | Outpatient (CLI) | payer MEDICARE, OTHER ==
--- NOTE | 2023-02-18 11:19 | Diagnostic Imaging Report ---
INDICATION: 67-year-old asymptomatic postmenopausal female. COMPARISON: 11/19/2018 FINDINGS: AP Spine L1-L4: [BMD (g/cm2): 1.099] [T-Score: -0.8] [Z-Score: 0.6] [BMD Previous: 1.164] [BMD % Change: -5.6*] LT Hip Neck: [BMD (g/cm2): 0.897] [T-Score: -1.0] [Z-Score: 0.4] LT Hip Total: [BMD (g/cm2):0.933] [T-Score:-0.6] [Z-Score: 0.6] [BMD Previous: 0.942] [BMD % Change: -1.0] RT Hip Neck: [BMD (g/cm2):0.917] [T-Score:-0.9] [Z-Score:0.6] RT Hip Total: [BMD (g/cm2):0.933] [T-score:-0.6] [Z-Score:0.6] [BMD Previous:0.947] [BMD % Change:-1.5] *Indicates significant change from prior examination based on 95% confidence level. World Health Organization criteria for BMD interpretation classify patients as Normal (T-score at or above -1.0), Osteopenic (T-score between -1.0 and -2.5) or Osteoporotic (T-score at or below -2.5). LIMITATIONS AND MODIFICATION: None. FRACTURE RISK (FRAX SCORE): The ten year probability of (%): Major Osteoporotic Fracture: [na] Hip Fracture: [na] IMPRESSION: 1. Normal bone mineral density. 2. Bone mineral density has decreased by a statistically significant amount, as detailed above. 3. See below National Osteoporosis Foundation guidelines on when to potentially initiate pharmacologic therapy. Based on the National Osteoporosis Foundation Guidelines, pharmacologic treatment should be initiated in any of the following, unless clinical conditions suggest otherwise: * Any patient with prior fragility fracture of the hip or vertebrae. A spine fracture indicates 5X risk for subsequent spine fracture and 2X risk for subsequent hip fracture. * Osteoporosis (T-score <-2.5). * Postmenopausal women and men age 50 and older with low bone mass/osteopenia (T-score between -1.0 and -2.5) by DXA and 10-year major osteoporotic fracture greater than 20% or a 10-year probability of hip fracture greater than 3%. These fracture risks are supplied above in the FRAX score, if applicable. * Clinician judgement and/or patient preferences may indicate treatment for people with 10-year fracture probabilities above or below these levels. Dictated by: Dictated on workstation # [id number]
== END ==
LOC: RAD 08:16
PROVIDERS: ATTEND Nurse Practitioner Family
DX: Z13.820 Encounter for screening for osteoporosis (principal); N95.1 Menopausal and female climacteric states
CPT/HCPCS: 77080